=== PATIENT | male | born 1960 | race Caucasian/White ===

== ENCOUNTER 2022-11-30 15:35 | Outpatient (OUT) | payer BC, SELFPAY | END 2022-11-30 15:36 | disposition home or self-care (01) | LOC: WC 15:35 | PROVIDERS: PCP Physician Assistant; Visit Provider Physician Assistant | DX: L97.211 Non-pressure chronic ulcer of right calf limited to breakdown of skin (principal); L97.821 Non-pressure chronic ulcer of other part of left lower leg limited to breakdown of skin | CPT/HCPCS: G0463 ==

== ENCOUNTER 2023-01-18 13:10 | Outpatient (OUT) | payer BC, SELFPAY | END 2023-01-18 13:11 | disposition home or self-care (01) | LOC: WC 13:11 | PROVIDERS: PCP Physician Assistant; Visit Provider Physician Assistant | DX: L97.211 Non-pressure chronic ulcer of right calf limited to breakdown of skin (principal) | CPT/HCPCS: A6213; G0463 ==

== ENCOUNTER 2024-08-14 14:34 | Outpatient (OUT) | payer BC, SELFPAY ==
--- OUTSIDE RECORDS SUMMARY | 2024-08-14 14:36 | XMS_ITS | Encounter Summary ---
Author Organization [facility] Address [address] [place] [address] Care Team Providers Care Audiovisual Tech Name Role Phone Serafin Sharif DO Unavailable [phone] Serafin Sharif DO Primary Care Provider [phone] Encounter Details Date Type Department Care Team (Late st Contact Info) Description 10/03/2023 Orders Only [facility] [address] [facility] [address] [place] [address] Isabelle Garcia RN Social History Tobacco Use Types Packs/Day Years Used Date Smoking Tobacco: Former Cigarettes Smokeless Tobacco: Never Alcohol Use Standard Drinks/Week Comments Yes 0 (1 standard drink = 0.6 oz pure alcohol) drinks alcohol 2-4 times a month Sex and Gender Information Value Date Recorded Sex Assigned at Not on file Legal Sex Male 6:39 PM EDT Gender Identity Not on file Sexual Orientation Not on file documented as of this encounter Plan of Treatment Not on file documented as of this encounter Visit Diagnoses Not on filedocumented in this encounter Care Teams Audiovisual Tech Relationship Specialty Start Date End Date Serafin Sharif DO [address] [facility] [address] [place] [address] PCP - [place] [employer] 07/03/20 Serafin Sharif DO [address] [facility] [address] [place] [address] PCP - General Family Medicine 07/11/22 documented as of this encounter
--- OUTSIDE RECORDS SUMMARY | 2024-08-14 14:36 | XMS_ITS | Encounter Summary ---
Author Organization [facility] Address [address] [facility] [place] [address] Care Team Providers Care Online Merchant Name Role Phone Serafin Sharif DO Unavailable [phone] Serafin Sharif DO Primary Care Provider [phone] Encounter Details Date Type Department Care Team (Late st Contact Info) Description 12/02/2023 Telephone [facility] [address] [place] [id number] Rafael Banegas DO [address] [place] [address] Social History Tobacco Use Types Packs/Day Years [...] on file documented as of this encounter Miscellaneous Notes * Telephone Encounter - Rafael Banegas DO - 12/02/2023 5:05 PM EDT Relayed the following message to director non profit team to forward back to patient: Unfortunately cannot sendantibiotic without an in person exam. From the sounds of it likely an ulcer from poor venous flow. I would recommend wrapping it with some gauze to cover it and then use compression stocking if possible or branden wrap to decrease swelling and drainage. Call tomorrow to be seen. Go to ER if symptoms worsen, drainage becomes purulent, fevers chills develop or redness, warmth develops or worsens * Telephone Encounter - Chau Reshma - 12/02/2023 2:47 PM EDT Gunner Beck 58: : Dr. Sharif. Patient reports an ulcer on his right leg. States that every now & then it seeps. However, there is a burning sensation which began a couple ofdays ago. Patient asks for an antibiotic to be sent to [facility] in [place]. Teams sent to Dr. Banegas. documented in this encounter Plan of Treatment Not on file documented as of this encounter Visit Diagnoses Not on filedocumented in this encounter Care Teams Online Merchant Relationship Specialty Start Date End Date Serafin Sharif DO [address] [place] [address] PCP - Saji Orozco 07/03/20 Serafin Sharif DO [address] [place] [place] [address] PCP - General Family Medicine 07/11/22 documented as of this encounter
--- OUTSIDE RECORDS SUMMARY | 2024-08-14 14:36 | XMS_ITS | Encounter Summary ---
Author Organization [facility] Address [address] [place] [address] Care Team Providers Care Billiard Player Name Role Phone Serafin Sharif DO Unavailable [phone] Serafin Sharif DO Primary Care Provider [phone] Reason for Visit * Reason Comments Med Refill Encounter Details Date Type Department Care Team (Late st Contact Info) Description 01/29/2023 Refill [facility] [address] [facility] [facility] 230 [place] [address] Serafin Sharif DO [address] [facility] [place] [place] [address] Primary osteoarthritis of left hip Social History Tobacco Use Types Packs/Day Years [...] documented as of this encounter Visit Diagnoses Diagnosis Primary osteoarthritis of left hip documented in this encounter Care Teams Billiard Player Relationship Specialty Start Date End Date Serafin Sharif DO [address] [facility] [place] [address] [place] [address] PCP - [place] Commercial 07/03/20 Serafin Sharif DO [address] [facility] 230 [place] [address] PCP - General Family Medicine 07/11/22 documented as of this encounter
--- OUTSIDE RECORDS SUMMARY | 2024-08-14 14:36 | XMS_ITS | Clinical Summary ---
Author Organization [facility] Address [address] [place] [address] Care Team Providers Care Stabilizing Machine Operator Name Role Phone Serafin Sharif DO Primary Care Provider [phone] Allergies No known active allergies Medications metFORMIN (Glucophage) 500 MG tablet TAKE 1 TABLET BY MOUTH TWICE A DAY WITH A MEAL FOR 30 DAYS 023 Active ammonium lactate (Lac-Hydrin) 12 % lotion APPLY TO SKIN DAILY NEEDED Active lidocaine (Xylocaine) 5 % ointment APPLY DAILY NEEDED 022 Active aspirin 81 MG EC tabletIndications :Varicose veins of both lower extremities with inflammation Take 1 tablet (81 mg) by mouth Daily 024 2024 Active cyclobenzaprine (Flexeril) 10 MG tabletIndications :Myalgia, other site TAKE 1 TABLET UP TO THREE TIMES A DAY NEEDED FOR MUSCLE SPASM 90 tablet 3 024 Active rOPINIRole (Requip) 1 MG tabletIndications :Restless legs syndrome Take 1 tablet (1 mg) by mouth at bedtime 90 tablet 3 025 2025 Active meloxicam (Mobic) 15 MG tabletIndications :Osteoarthritis, unspecified osteoarthritis type, unspecified site Take 1 tablet (15 mg) by mouth Daily Take 15 mg by mouth Daily 90 tablet 3 025 Active metoprolol succinate XL (Toprol-XL) 100 MG 24 hr tabletIndications :Hypertension, unspecified type 1 po q daily 90 tablet 3 025 Active terazosin (Hytrin) 5 MG capsuleIndication s:Hypertension, unspecified type TAKE 1 CAPSULE DAILY 90 capsule 3 025 Active lisinopril 20 MG tabletIndications :Primary hypertension TAKE 1 TABLET TWICE A DAY (GOING BACKUP TO 40 MG TOTAL PER DAY) 180 tablet 3 025 Active oxyCODONE-acetami nophen (Percocet) 7.5-325 MG tabletIndications :Primary osteoarthritis of right knee Take 1 tablet by mouth every 6 (six) hours if needed for severe pain 60 tablet 025 Active traMADol-acetamin ophen (Ultracet) 37.5-325 MG tabletIndications :Primary osteoarthritis of right knee Take 1 tablet by mouth every 6 (six) hours if needed for severe pain 60 tablet 025 Active hydrocortisone 2.5 % creamIndications: Itching Apply topically in the morning and before bedtime. 28 g 025 Active predniSONE (Deltasone) 10 MG tabletIndications :Primary osteoarthritis of hip, unspecified laterality Take 1 tablet (10 mg) by mouth Daily TAKE 1 TABLET BY MOUTH WITH FOOD OR MILK THREE TIMES A DAY FOR 5 DAYS 15 tablet 025 Active triamcinolone (Kenalog) 0.1 % ointmentIndicatio ns:Itching Apply topically every 12 (twelve) hours 454 g 025 Active hydroCHLOROthiazi de (HYDRODiuril) 12.5 MG tabletIndications :Primary hypertension TAKE 1 TABLET IN THE MORNING (LOWERED DOSE) 90 tablet 3 025 Active hydrocortisone 2.5 % creamIndications: Itching Apply topically 2 (two) times a day. 28 g 023 2024 Discontinued(R eorder) predniSONE (Deltasone) 10 MG tabletIndications :Primary osteoarthritis of hip, unspecified laterality Take 1 tablet (10 mg) by mouth in the morning. TAKE 1 TABLET BY MOUTH WITH FOOD OR MILK THREE TIMES A DAY FOR 5 DAYS. 15 tablet 023 2024 Discontinued(R eorder) triamcinolone (Kenalog) 0.1 % ointment every 12 (twelve) hours. 023 2024 Discontinued(R eorder) hydroCHLOROthiazi de (HYDRODiuril) 12.5 MG tabletIndications :Primary hypertension Take 1 tablet (12.5 mg) by mouth in the morning. 90 tablet 3 024 2024 Discontinued traMADol (Ultram) 50 MG tabletIndications :Primary osteoarthritis of left hip Take 1 tablet (50 mg) by mouth every 6 (six) hours if needed for severe pain 90 tablet 025 2024 Discontinued(A lternate therapy) hydrocortisone 2.5 % creamIndications: Itching Apply topically in the morning and before bedtime. 28 g 025 2024 Discontinued(R eorder) methylPREDNISolon e (Medrol Dospak) 4 MG tabletsIndication s:Itching Follow schedule on package instructions 21 tablet 025 2024 levoFLOXacin (Levaquin) 750 MG tabletIndications :Cellulitis of leg without foot, right Take 1 tablet (750 mg) by mouth Daily for 7 days 7 tablet 025 2024 Active Problems Problem Noted Date Diagnosed Date Varicose veins of lower extremity with ulcer 02/2023 Varicose veins of lower extremity with inflammat ion 11/14/2022 Psoriasis 11/14/2022 Hypertension 11/14/2022 ED (erectile dysfunction) 11/14/2022 Carpal tunnel syndrome 11/14/2022 Allergic rhinitis 11/14/2022 Osteoarthritis of hip 07/30/2022 Primary osteoarthritis of right knee 07/30/2022 Encounters Date Type Department Care Team Description 08/13/2024 Refill [facility] [address] [place] [address] Serafin Sharif, DO Primary hypertension 07/29/2024 Telephone [facility] [address] [address] [place] [address] Jasmin Burt MA Med Refill 07/26/2024 Telephone [facility] [address] [place] [address] [place] [address] Serafin Sharif, DO Other (print color matcher); Med Refill 07/07/2024 Telephone [facility] [address] [place] [address] Serafin Sharif, DO Medication Question 07/01/2024 Telephone [facility] [address] [place] [address] Serafin Sharif, DO handi gaby placard ; Medication Question 06/20/2024 Telephone [facility] [address] [place] [address] Serafin Sharif, DO Medication Question 06/17/2024 Refill [facility] [address] [place] [address] Serafin Sharif, DO Primary osteoarthritis of right knee; Primary osteoarthritis of left hip 06/06/2024 3:00 PM EDT Telemedicine [facility] [address] [place] [address] Serafin Sharif, DO Leg ulcer, right, limited to breakdown of skin (HCC) (Primary Dx); Episodic tension-type headache, not intractable; Psoriasis ; Primary osteoarthritis of left hip 06/06/2024 Bamboo flowsheet [facility] [address] [place] [address] Serafin Sharif, DO 06/06/2024 Travel 06/04/2024 Telephone [facility] [address] [place] [address] Serafin Sharif, DO Med Refill 06/03/2024 Refill [facility] [address] [place] [address] Serafin Sharif, DO Primary osteoarthritis of left hip; Hypertension, unspecified type ; Primary hypertension 05/19/2024 Telephone [facility] [address] [place] [address] Serafin Sharif, DO Medication Question 05/16/2024 Telephone [facility] [address] [place] [address] Serafin Sharif, DO Medication Question 05/14/2024 Telephone [facility] [address] [place] [address] Marion Gaston MA from Last 3 Months Family History Medical History Relation Name Comments Cancer Mother Heart attack Sister 1 Relation Name Status Comments Brother Alive Father Mother Sister 1 Alive Sister 2 Alive Social History Tobacco Use Types Packs/Day Years Used Date Smoking Tobacco: Former Cigarettes Smokeless Tobacco: Never Tobacco Cessation:Counseling Given: Not Answered Alcohol Use Standard Drinks/Week Comments Yes 0 (1 standard drink = 0.6 oz pure alcohol) drinks alcohol 2-4 times a month B1300 Health Literacy Answer Date Recor ded How often do you need to hav e someone help you when you read instructions, pamphlets, or other written material from your doctor or pharmacy? Sometimes 06/06/2024 Social Connection and Isolat ion Panel [NHANES] Answer Date Recorded In a typical week, how many times do you talk on the phone with family, friends, or neighbors? More than three times a week 06/06/2024 How often do you get togethe r with friends or relatives? Never 06/06/2024 How often do you attend chur ch or buddhist services? Never 06/06/2024 Do you belong to any clubs o r organizations such as anabaptism groups, unions, fraternal or athletic groups, or school groups? No 06/06/2024 How often do you attend meet ings of the clubs or organizations you belong to? Never 06/06/2024 Are you , , di vorced, , never , or living with a partner? 06/06/2024 AUDIT-C Answer Date Recorded Q1: How often do you have a drink containing alc ohol? 2-4 times a month 06/06/2024 Q2: How many drinks containi ng alcohol do you have on a typical day when you are drinking? 7 to 9 06/06/2024 Q3: How often do you have si x or more drinks on one occasion? Weekly 06/06/2024 Overall Financial Resource Strain (CARDIA) Answe r Date Recorded How hard is it for you to pa y for the very basics like food, housing, medical care, and heating? Somewhat hard 06/06/2024 [facility] [place] [facility] Occupat ional Health - Occupational Stress Questionnaire Answer Date Recorded Do you feel stress - tense, restless, nervous, or anxious, or unable to sleep at night because your mind is troubled all the time - these days? To some extent 06/06/2024 Exercise Vital Sign Answer Date Recorde d On average, how many days pe r week do you engage in moderate to strenuous exercise (like a brisk walk)? 0 days 06/06/2024 On average, how many minutes do you engage in exercise at this level? 10 min 06/06/2024 Hunger Vital Sign Answer Date Recorded Within the past 12 months, y ou worried that your food would run out before you got the money to buy more. Never true 06/07/19 25 Within the past 12 months, t he food you bought just didn't last and you didn't have money to get more. Never true 06/06/2024 PRAPARE - Transportation Answer Date Re corded In the past 12 months, has l ack of transportation kept you from medical appointments or from getting medications? No 06/2024 In the past 12 months, has l ack of transportation kept you from meetings, work, or from getting things needed for daily living? No 06/06/2024 Housing Stability Vital Sign Answer Dillon e Recorded In the last 12 months, was t here a time when you were not able to pay the mortgage or rent on time? No 06/06/2024 In the past 12 months, how m any times have you moved where you were living? 0 06/06/2024 At any time in the past 12 m [facility], were you homeless or living in a prison (including now)? No 06/06/2024 Sex and Gender Information Value Date Recorded Sex Assigned at Not on file Legal Sex Male 6:39 PM EDT Gender Identity Not on file Sexual Orientation Not on file Last Filed Vital Signs Vital Sign Reading Time Taken Comments Blood Pressure 128/82 11/14/2022 11:39 AM EDT Pulse 78 11/14/2022 11:39 AM EDT Temperature 36.8 C (98.2 F) 11/14/2022 11:39 AM EDT Respiratory Rate - - Oxygen Saturation - - Inhaled Oxygen Concentration - - Weight 137 kg (301 lb) 11/14/2022 11:39 AM EDT Height 165.1 cm (5' 5 ) 11/14/2022 11:39 AM EDT Body Mass Index 50.09 11/14/2022 11:39 AM EDT Plan of Treatment Health Maintenance Due Date Last Done Comments CT Colonography 1959 FIT-DNA 1959 FIT 1959 FOBT 1959 Sigmoidoscopy 1959 Influenza Vaccine (Season Ended) 2024 12/27/2021, 12/09/2019, 12/07/2019, Additional history exists Colonoscopy 09/05/2027 09/04/2017, 11/30/2014 Colorectal Cancer Screening 09/05/2027 Procedures Procedure Name Priority Date/Time Associated Diagnosis Comments COLONOSCOPY Routine 09/04/2017 12:00 PM EDT from Last 3 Months or Most Recently Relevant to Health Maintenance Results * Colonoscopy (09/04/2017 12:00 PM EDT) Anatomical Region Laterality Modality Endoscopy 09/04/2017 12:0 0 PM EDT Narrative 09/04/2017 12:00 PM EDT PERFORMED AT [facility] LOCATION:[id number] Procedure Note CONVERSION, GENERIC - 07/19/2022 PERFORMED AT [facility] LOCATION:[id number] Serafin Sharif DO ENDOSCOPY PROCEDURE ORDERABLES Final Result from Last 3 Months or Most Recently Relevant to Health Maintenance Insurance [facility] Care Teams Stabilizing Machine Operator Relationship Specialty Start Date End Date Serafin Sharif DO [address] [address] PCP - General Family Medicine 07/11/22
--- OUTSIDE RECORDS SUMMARY | 2024-08-14 14:36 | XMS_ITS | Encounter Summary ---
Author Organization [facility] Address [address] [place] [address] Care Team Providers Care Review Appraiser Name Role Phone Serafin Sharif DO Unavailable [phone] Serafin Sharif DO Primary Care Provider [phone] Reason for Visit * Reason Comments Med Refill Encounter Details Date Type Department Care Team (Late st Contact Info) Description 04/29/2024 Refill [facility] [address] [facility] 230 [place] [address] Serafin Sharif DO [address] [facility] 230 [place] [address] Osteoarthritis, unspecified osteoarthritis type, unspecified site; Hypertension, unspecified type Social History Tobacco Use Types Packs/Day Years [...] encounter Miscellaneous Notes * Telephone Encounter - Jasmin Burt MA - 04/29/2024 8:32 AM EST duplicate documented in this encounter Plan of Treatment Not on file documented as of this encounter Visit Diagnoses Diagnosis Osteoarthritis, unspecified osteoarthritis type, unspecified site Hypertension, unspecified type documented in this encounter Care Teams Review Appraiser Relationship Specialty Start Date End Date Serafin Sharif DO [address] [place] [address] PCP - [place] [employer] 07/03/20 Serafin Sharif DO [address] [place] [address] PCP - General Family Medicine 07/11/22 documented as of this encounter
--- OUTSIDE RECORDS SUMMARY | 2024-08-14 14:36 | XMS_ITS | Encounter Summary ---
Author Organization [facility] Address [address] [facility] [place] [address] Care Team Providers Care Tile Burner Name Role Phone Serafin Sharif DO Unavailable [phone] Serafin Sharif DO Primary Care Provider [phone] Encounter Details Date Type Department Care Team (Late st Contact Info) Description 02/13/2024 Abstract [facility] [address] [place] [address] [place] [address] Serafin Sharif DO [address] [facility] [address] [facility] [address] [address] [place] [address] Social History Tobacco Use Types Packs/Day Years [...] on filedocumented in this encounter Care Teams Tile Burner Relationship Specialty Start Date End Date Serafin Sharif DO [address] [facility] [address] [place] [address] PCP - [place] [employer] 07/03/20 Serafin Sharif DO [address] [place] [address] PCP - General Family Medicine 07/11/22 documented as of this encounter
--- OUTSIDE RECORDS SUMMARY | 2024-08-14 14:36 | XMS_ITS | Encounter Summary ---
Author Organization [facility] Address [id number] [address] [place] [address] Care Team Providers Care Daycare Provider Name Role Phone Serafin Sharif DO Primary Care Provider [phone] Reason for Referral * Vascular (Routine) - Closed Specialty Diagnoses / Procedures Referred By Aguilar kingsley Referred To Contact Diagnoses Lymphedema PAD (peripheral artery disease) Venous ulcer ([facility]) Venous insufficiency Procedures Vas venous duplex insufficiency lwr bi Winnie Irizarry MD [address] [place] [address] Phone: tel: fax: [address] [address] Phone: tel: Referral ID Status Reason Start Date Expiration Date Visits Re quested Visits Authorized [id number] Closed 12/30/2020 12/30/2021 1 1 Encounter Details Date Type Department Care Team (Late st Contact Info) Description 12/30/2020 Orders Only [facility] [address] [place] [address] Cr Roman CMA PAD (peripheral artery disease) ([facility]) (Primary Dx); Lymphedema; Venous ulcer ([facility]); Venous insufficiency Social History Tobacco Use Types Packs/Day Years Used Date Smoking Tobacco: Never Smokeless Tobacco: Never Alcohol Use Standard Drinks/Week Comments Not Currently 0 (1 standard drink = 0.6 oz pur e alcohol) Sex and Gender Information Value Date Recorded Sex Assigned at Not on file Legal Sex Male 2:24 PM EDT Gender Identity Not on file Sexual Orientation Not on file COVID-19 Exposure Response Date Recorded In the last month, have you been in contact with someone who was confirmed or suspected to have Coronavirus / COVID-19? No / Unsure 12/30/2020 10:19 AM EDT documented as of this encounter Plan of Treatment Not on file documented as of this encounter Results * Vas venous duplex insufficiency lwr bi (01/18/2021 2:17 PM EST) Anatomical Region Laterality Modality Vascular Bilateral Ultrasound 01/18/2021 2:30 PM EST Narrative 01/18/2021 4:06 PM EST Right: Limited visualization of veins in the calf due to edema and body habitus. Remaining deep visualized venous segments are compressible with spontaneous phasic spectral Doppler waveforms. Superficial veins are compressible. Venous reflux time is <1000 ms in all evaluated deep veins. Saphenofemoral junction was noted with reflux time >500 ms. Great saphenous vein with 1673 ms reflux time in the mid medial calf. Superficial great saphenous varicosities noted in the medial calf. Left: Limited visualization of veins in the calf due to edema and body habitus. Remaining deep visualized venous segments are compressible with spontaneous phasic spectral Doppler waveforms. Superficial veins are compressible. Venous reflux time is <1000 ms in all evaluated deep veins. Saphenofemoral junction reflux >500 ms with multilevel great saphenous vein reflux. Superficial great saphenous varicosities noted in the medial calf. General: This examination was performed in the upright position. Conclusions: RIGHT: No evidence of deep or superficial vein thrombosis of the lower extremity. Limited visualization of lower extremity venous segments. No evidence of deep venous reflux. Saphenofemoral junction and great saphenous superficial vein reflux. Superficial varicosities. LEFT: No evidence of deep or superficial vein thrombosis of the lower extremity. Limited visualization of lower extremity venous segments. No evidence of deep venous reflux. Saphenofemoral junction and great saphenous superficial vein reflux. Superficial varicosities. Recommendations: Any questions prior to finalization, please call the reading physician during normal business hours at the phone number beside their name. Procedure Note Khurram Carrasquillo MD - 01/18/2021 Right: Limited visualization of veins in the calf due to edema and bodyhabitus. Remaining deep visualized venous segments are compressible withspontaneous phasic spectral Doppler waveforms. Superficial veins arecompressible. Venous reflux time is <1000 ms in all evaluated deep veins. Saphenofemoral junction was notedwith reflux time >500 ms. Great saphenous vein with 1673 ms reflux timein the mid medial calf. Superficial great saphenous varicosities notedin the medial calf. Left: Limited visualization of veins in the calf due to edema and bodyhabitus. Remaining deep visualized venous segments are compressible withspontaneous phasic spectral Doppler waveforms. Superficial veins arecompressible. Venous reflux time is <1000 ms in all evaluated deep veins. Saphenofemoral junction reflux >500ms with multilevel great saphenous vein reflux. Superficial greatsaphenous varicosities noted in the medial calf. General: This examination was performed in the upright position. Conclusions: RIGHT: No evidence of deep or superficial vein thrombosisof the lower extremity. Limited visualization of lower extremity venoussegments. No evidence of deep venous reflux. Saphenofemoral junctionand great saphenous superficial vein reflux. Superficial varicosities. LEFT: No evidence of deep orsuperficial vein thrombosis of the lower extremity. Limitedvisualization of lower extremity venous segments. No evidence of deepvenous reflux. Saphenofemoral junction and great saphenous superficial vein reflux. Superficial varicosities. Recommendations: Any questions prior to finalization, please call thereading physician during normal business hours at the phone number besidetheir name. Winnie Irizarry MD CV VASCULAR ORDERABLES Final Re sult documented in this encounter Visit Diagnoses Diagnosis PAD (peripheral artery disease)- Primary Unspecified peripheral vascular disease Lymphedema Other noninfectious lymphedema Venous ulcer (CMS-HCC) Chronic ulcer of unspecified site Venous insufficiency Unspecified venous (peripheral) insufficiency Lymphedema Other noninfectious lymphedema PAD (peripheral artery disease) Unspecified peripheral vascular disease Venous ulcer (CMS-HCC) Chronic ulcer of unspecified site Venous insufficiency Unspecified venous (peripheral) insufficiency documented in this encounter Care Teams Daycare Provider Relationship Specialty Start Date End Date Serafin Sharif DO [address] [facility] [address] [place] [address] PCP - General Family Medicine 01/18/21 documented as of this encounter
--- OUTSIDE RECORDS SUMMARY | 2024-08-14 14:36 | XMS_ITS | Encounter Summary ---
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 Never 06/06/2024 Do you belong to any clubs o r organizations such as shinto groups, unions, fraternal or athletic groups, or [...] medical care, and heating? Somewhat hard 06/06/2024 [facility] - Occupational Stress [...] any time in the past 12 m onths, were you homeless or living in a long term (including now)? No 06/06/2024 Sex and Gender Information Value Date Recorded Sex Assigned at Not on file Legal Sex Male 6:39 PM EDT Gender Identity Not on file Sexual Orientation Not on file documented as of this encounter Miscellaneous Notes * Telephone Encounter - Isabelle Garcia RN - 08/07/2024 1:11 PM EDT Please give him this message if he calls. He will not answer * Addendum Note - Serafin Sharif DO - 08/06/2024 5:52 PM EDTAddended by: SERAFIN SHARIF on: 08/06/2024 05:52 PM Modules accepted: Orders * Telephone Encounter - Mandy aMriscal - 08/06/2024 9:32 AM EDT Calling about cream * Telephone Encounter - Mandy Mariscal - 08/05/2024 11:29 AM EDT Pt calling in about above mentioned issues. The stronger cream in a bigger container for eczema. Aswell as if it's ok to use the ammonia lactate? * Telephone Encounter - Prabha Carney - 08/04/2024 1:38 PM EDT Pt called back in checking on the answer for the ammonialactate if its alright to use since it in 2022? * Telephone Encounter - Mandy Mariscal - 08/04/2024 8:44 AM EDT Pt states he is still having significant flare ups of excema on his legs. He is requesting a stronger strength of the cream (double if possible) and a bigger container/tube. He is almost out of the cream he picked up last week. He said the itching is unbearable. [facility]. Please call if/when this is done. He found a full bottle of ammonia lactate 12% but it in 2022. He was wondering if it is still good to use? Also per pt request printed out another 2 copies of the handicap placard order and placed at check in. Pt's may come to pick them up if he doesn't get them in the mail. * Addendum Note - Serafin Sharif DO - 07/30/2024 5:39 PM EDTAddended by: SERAFIN SHARIF on: 07/30/2024 05:39 PM Modules accepted: Orders * Telephone Encounter - Damaris Mcnulty MA - 07/30/2024 3:57 PM EDT Pt called back, he would like an update on the medication. He states he would like a stronger dose of the steroid, he would also like Levofloxacin sent in with refills. Pt would like an update once medication is sent. * Telephone Encounter - Mandy Mariscal - 07/30/2024 11:13 AM EDT Pt states he thinks the methylprednisolone wasn't strong enough. Pt would like a stronger dose of steroids for his eczema on his legs and forearms. He would like this sent to [facility]. He would also like antibiotics for his leg ulcers. * Telephone Encounter - Chelsea Powers MD - 07/26/2024 12:29 PM EDT Sent in steroid pack and cream * Telephone Encounter - Arielle Camacho - 07/26/2024 12:21 PM EDT Gunner Beck is a 63 y.o. male pt called in requesting if he could get [facility] [address] [place], [place] [id number] for his eczema flare up. Pt has had excessive dry knees and forearms that its very itchy and he scratches till the skin is raw. I did recommend pt to Urgent Care, pt refused he says he is disabled and cannot get out. (Secure message sent to gas collection system operator provider) documented in this encounter Plan of Treatment Not on file documented as of this encounter Visit Diagnoses Diagnosis Cellulitis of leg without foot, right- Primary Itching Unspecified pruritic disorder Primary osteoarthritis of hip, unspecified laterality documented in this encounter Care Teams Gem Technician Relationship Specialty Start Date End Date Serafin Sharif DO [address] [place] [address] [place] [address] PCP - General Family Medicine 07/11/22 documented as of this encounter
--- OUTSIDE RECORDS SUMMARY | 2024-08-14 14:36 | XMS_ITS | Encounter Summary ---
Author Organization [facility] Address [address] [place] [address] Care Team Providers Care Repair Operator Name Role Phone Serafin Sharif DO Primary Care Provider Reason for Visit * Reason Comments Med Refill Encounter Details Date Type Department Care Team (Late st Contact Info) Description 08/13/2024 Refill [facility] [address] [facility] [place] [address] [place] [address] Serafin Sharif DO [address] [facility] [address] [place] [address] Primary hypertension Social History Tobacco Use Types Packs/Day Years [...] 06/06/2024 How often do you attend chur or hindu services? Never 06/06/2024 Do you belong to any clubs o r organizations such as anglican groups, unions, fraternal or athletic groups, or [...] medical care, and heating? Somewhat hard 06/06/2024 [facility] - Occupational Stress [...] any time in the past 12 m [facility], were you homeless or living in a half-way (including now)? No 06/06/2024 Sex and Gender Information Value Date Recorded Sex Assigned at Not on file Legal Sex Male 6:39 PM EDT Gender Identity Not on file Sexual Orientation Not on file documented as of this encounter Plan of Treatment Not on file documented as of this encounter Visit Diagnoses Diagnosis Primary hypertension Unspecified essential hypertension documented in this encounter Care Teams Repair Operator Relationship Specialty Start Date End Date Serafin Sharif DO [address] [facility] [address] [place] [address] [place] [address] PCP - General Family Medicine 07/11/22 documented as of this encounter
--- OUTSIDE RECORDS SUMMARY | 2024-08-14 14:36 | XMS_ITS | Encounter Summary ---
Author Organization [facility] Address [address] [place] [address] Care Team Providers Care Lpn Rn Name Role Phone Serafin Sharif DO Unavailable [phone] Serafin Sharif DO Primary Care Provider [phone] Encounter Details Date Type Department Care Team (Late st Contact Info) Description 09/07/2022 Abstract [facility] [address] [place] [address] [place] [address] Serafin Sharif DO [address] [place] [address] [place] [address] Social History Tobacco Use Types Packs/Day Years Used Date Smoking Tobacco: Never Assessed Sex and Gender Information Value Date Recorded Sex Assigned at Not on file Legal Sex Male 6:39 PM EDT Gender Identity Not on file Sexual Orientation Not on file documented as of this encounter Plan of Treatment Not on file documented as of this encounter Visit Diagnoses Not on filedocumented in this encounter Care Teams Lpn Rn Relationship Specialty Start Date End Date Serafin Sharif DO [address] [place] [address] [place] [address] PCP - [place] [employer] 07/03/20 Serafin Sharif DO [address] [place] [address] [place] [address] PCP - General Family Medicine 07/11/22 documented as of this encounter
--- OUTSIDE RECORDS SUMMARY | 2024-08-14 14:36 | XMS_ITS | Encounter Summary ---
Author Organization [facility] Address [address] [facility] [place] [address] Care Team Providers Care Facilities Engineer Name Role Phone Serafin Sharif DO Unavailable [phone] Serafin Sharif DO Primary Care Provider [phone] Encounter Details Date Type Department Care Team (Late st Contact Info) Description 01/05/2023 Abstract [facility] [address] [place] [address] [place] [address] Serafin Sharif DO [address] [place] [address] [place] [address] Social History Tobacco Use Types Packs/Day Years [...] on filedocumented in this encounter Care Teams Facilities Engineer Relationship Specialty Start Date End Date Serafin Sharif DO [address] [place] [address] [place] [address] PCP - [place] [employer] 07/03/20 Serafin Sharif DO [address] [place] [address] [place] [address] PCP - General Family Medicine 07/11/22 documented as of this encounter
--- OUTSIDE RECORDS SUMMARY | 2024-08-14 14:36 | XMS_ITS | Encounter Summary ---
Author Organization [facility] Address [address] [place] [address] Care Team Providers Care Brake Reliner Name Role Phone Serafin Sharif DO Unavailable [phone] Serafin Sharif DO Primary Care Provider [phone] Encounter Details Date Type Department Care Team (Late st Contact Info) Description 07/28/2022 Orders Only [facility] [address] [facility] [address] [place] [address] Freeman Sharif MA Social History Tobacco Use Types Packs/Day Years [...] on filedocumented in this encounter Care Teams Brake Reliner Relationship Specialty Start Date End Date Serafin Sharif DO [address] [facility] [address] [place] [address] PCP - [place] [employer] 07/03/20 Serafin Sharif DO [address] [facility] [address] [place] [address] PCP - General Family Medicine 07/11/22 documented as of this encounter
--- OUTSIDE RECORDS SUMMARY | 2024-08-14 14:36 | XMS_ITS | Encounter Summary ---
Author Organization [facility] Address [address] [place] [address] Care Team Providers Care Financial Advisor Trainee Name Role Phone Serafin Sharif DO Primary Care Provider [phone] Reason for Visit * Reason Onset Date Comments handi cap placard 07/01/2024 Medication Question 07/01/2024 Encounter Details Date Type Department Care Team (Late st Contact Info) Description 07/01/2024 Telephone [facility] [address] [facility] [address] [place] [address] Serafin Sharif DO [address] [facility] [address] [place] [address] handi cap placard ; Medication Question Social History Tobacco Use Types Packs/Day Years [...] Never 06/06/2024 How often do you attend [facility] or yazidism services? Never 06/06/2024 Do you belong to any clubs o r organizations such as confucianist groups, unions, fraternal or athletic groups, or [...] medical care, and heating? Somewhat hard 06/06/2024 [facility] Occupat ional Health - Occupational [...] any time in the past 12 m [facility], were you homeless or living in a assisted (including now)? No 06/06/2024 Sex and Gender Information Value Date Recorded Sex Assigned at Not on file Legal Sex Male 6:39 PM EDT Gender Identity Not on file Sexual Orientation Not on file documented as of this encounter Miscellaneous Notes * Telephone Encounter - Mandy Davey - 07/31/2024 8:35 AM EDT Pt states he has not received handicap placards. I did tell him those were sent July 07. Confirmed address with patient printed out 2 copies and placed in envelope. Informed pt I would mail those again. Pt also wanted to know if his higher dose Prednisone had been sent in. Informed pt that yes it had and also antibiotic to [facility] [place]. Pt voiced understanding. * Addendum Note - Serafin Sharif DO - 07/07/2024 12:52 PM EDTAddended by: SERAFIN SHARIF on: 07/07/2024 12:52 PM Modules accepted: Orders * Telephone Encounter - Prabha Carney - 07/01/2024 9:49 AM EDT Pt will need a new rx for his handy cap placards he says he will need two. documented in this encounter Plan of Treatment Not on file documented as of this encounter Visit Diagnoses Diagnosis Primary osteoarthritis of left hip- Primary documented in this encounter Care Teams Financial Advisor Trainee Relationship Specialty Start Date End Date Serafin Sharif DO [address] [facility] [address] [place] [address] PCP - General Family Medicine 07/11/22 documented as of this encounter
--- OUTSIDE RECORDS SUMMARY | 2024-08-14 14:36 | XMS_ITS | Clinical Summary ---
Author Organization [facility] Address [id number] [address] [place] [address] Care Team Providers Care Sonography Technician Name Role Phone Serafin Sharif DO Primary Care Provider [phone] Allergies No known active allergies Medications diclofenac (VOLTAREN) 75 mg EC tablet 12/17/2020 Active hydroCHLOROthiazid e (HYDRODIURIL) 25 mg tablet 11/10/2020 Active lisinopriL (PRINIVIL,ZESTRIL) 40 mg tablet 12/14/2020 Active metoprolol succinate XL (TOPROL-XL) 100 mg 24 hr tablet 11/10/2020 Active naproxen (NAPROSYN) 500 mg tablet 10/24/2020 Active terazosin (HYTRIN) 5 mg capsule 11/27/2020 Active Active Problems Problem Noted Date Diagnosed Date Venous stasis ulcer of right calf with fat layer exposed without varicose veins 01/18/2021 Family History Medical History Relation Name Comments Cancer Mother Relation Name Status Comments Father Mother Social History Tobacco Use Types Packs/Day Years [...] Sign Reading Time Taken Comments Blood Pressure 137/82 01/18/2021 3:56 PM EST Pulse 88 01/18/2021 3:56 PM EST Temperature 36.6 C (97.8 F) 01/18/2021 3:56 PM EST Respiratory Rate 18 01/18/2021 3:56 PM EST Oxygen Saturation - - Inhaled Oxygen Concentration - - Weight 130.2 kg (287 lb) 12/30/2020 10:30 AM EDT Height 175.3 cm (5' 9 ) 12/30/2020 10:30 AM EDT Body Mass Index 42.38 12/30/2020 10:30 AM EDT Plan of Treatment Health Maintenance Due Date Last Done Comments Depression Screening 1971 Tobacco Screening 1971 Adult BMI Screening 10/28/1977 DTaP,Tdap and Td Vaccines (1 - Tdap) 10/28/1978 Zoster (Shingles) Vaccine (1 of 2) 10/28/2009 COVID-19 Vaccine (3 - 2023-2 5 season) 2023 08/17/2020, 07/27/2020 Influenza Vaccine 11/03/2024 12/07/2019, , 01/25/2018 Medical Devices [place] [address] G[employer] Care Teams Sonography Technician Relationship Specialty Start Date End Date Serafin Sharif DO [address] [place] [address] [place] [address] PCP - General Family Medicine 01/18/21
--- OUTSIDE RECORDS SUMMARY | 2024-08-14 14:36 | XMS_ITS | Encounter Summary ---
Author Organization [facility] Address [address] [facility] [place] [address] Care Team Providers Care Operations Administrative Assistant Name Role Phone Serafin Sharif DO Unavailable [phone] Serafin Sharif DO Primary Care Provider [phone] Encounter Details Date Type Department Care Team (Late st Contact Info) Description 02/13/2024 Abstract [facility] [address] [facility] [address] [facility] [address] [address] [place] [address] [place] [address] Serafin Sharif DO [address] [facility] [address] [address] [place] [place] [address] Social History Tobacco Use Types Packs/Day Years [...] on filedocumented in this encounter Care Teams Operations Administrative Assistant Relationship Specialty Start Date End Date Serafin Sharif DO [address] [facility] [address] [address] [place] [address] [place] [address] PCP - [place] [employer] 07/03/20 Serafin Sharif DO [address] [facility] [address] [place] [place] [address] PCP - General Family Medicine 07/11/22 documented as of this encounter
--- OUTSIDE RECORDS SUMMARY | 2024-08-14 14:36 | XMS_ITS | Encounter Summary ---
Author Organization [facility] Address [address] [place] [address] Care Team Providers Care Furnace Charger Name Role Phone Serafin Sharif DO Unavailable [phone] Serafin Sharif DO Primary Care Provider [phone] Encounter Details Date Type Department Care Team (Late st Contact Info) Description 07/30/2022 Orders Only [facility] [phone] Caio Haynes DO [address] [facility] [address] [place] [address] Social History Tobacco Use Types Packs/Day Years [...] on filedocumented in this encounter Care Teams Furnace Charger Relationship Specialty Start Date End Date Serafin Sharif DO [address] [place] [address] [place] [address] PCP - [place] [employer] 07/03/20 Serafin Sharif DO [address] [place] [address] [place] [address] PCP - General Family Medicine 07/11/22 documented as of this encounter
== END 2024-08-14 14:35 | disposition home or self-care (01) ==
LOC: WC 14:34
PROVIDERS: Visit Provider Podiatrist Foot & Ankle Surgery
DX: L97.211 Non-pressure chronic ulcer of right calf limited to breakdown of skin (principal)
CPT/HCPCS: 29581

== ENCOUNTER 2024-08-22 12:22 | Emergency (ER) | payer BC, SELFPAY ==
--- OUTSIDE RECORDS SUMMARY | 2024-08-22 12:35 | XMS_ITS | Encounter Summary ---
Author Organization [facility] Address [address] [facility] [place] [address] Care Team Providers Care Reporting Lead Name Role Phone Serafin Sharif DO Unavailable [phone] Serafin Sharif DO Primary Care Provider [phone] Encounter Details Date Type Department Care Team (Late st Contact Info) Description 02/13/2024 Abstract [facility] [address] [place] [address] Serafin Sharif DO [address] [place] [address] Social History Tobacco Use Types Packs/Day Years [...] on filedocumented in this encounter Care Teams Reporting Lead Relationship Specialty Start Date End Date Serafin Sharif DO [address] [place] [address] PCP - [place] Commercial 07/03/20 Serafin Sharif DO [address] [place] [address] PCP - General Family Medicine 07/11/22 documented as of this encounter
--- OUTSIDE RECORDS SUMMARY | 2024-08-22 12:35 | XMS_ITS | Encounter Summary ---
Author Organization [facility] Address [address] [place] [address] Care Team Providers Care Beehive Kiln Supervisor Name Role Phone Serafin Sharif DO Unavailable [phone] Serafin Sharif DO Primary Care Provider Encounter Details Date Type Department Care Team (Late st Contact Info) Description 07/30/2022 Orders Only [facility] [phone] Caio Haynes DO [address] [facility] 230 [place] [address] Social History Tobacco Use Types Packs/Day Years [...] on filedocumented in this encounter Care Teams Beehive Kiln Supervisor Relationship Specialty Start Date End Date Serafin Sharif DO [address] [place] [address] PCP - [place] Commercial 07/03/20 Serafin Sharif DO [address] [place] [address] PCP - General Family Medicine 07/11/22 documented as of this encounter
--- OUTSIDE RECORDS SUMMARY | 2024-08-22 12:35 | XMS_ITS | Encounter Summary ---
Author Organization [facility] Address [address] [facility] [place] [address] Care Team Providers Care Drop Count Associate Name Role Phone Serafin Sharif DO Unavailable [phone] Serafin Sharif DO Primary Care Provider [phone] Encounter Details Date Type Department Care Team (Late st Contact Info) Description 02/13/2024 Abstract [facility] [address] [place] [address] Serafin Sharif DO [address] [place] [address] Social History Tobacco Use Types Packs/Day Years [...] on filedocumented in this encounter Care Teams Drop Count Associate Relationship Specialty Start Date End Date Serafin Sharif DO [address] [place] [address] PCP - [place] Commercial 07/03/20 Serafin Sharif DO [address] [place] [address] PCP - General Family Medicine 07/11/22 documented as of this encounter
--- OUTSIDE RECORDS SUMMARY | 2024-08-22 12:35 | XMS_ITS | Encounter Summary ---
Author Organization [facility] Address [address] [place] [address] Care Team Providers Care Teacher Adventure Education Name Role Phone Serafin Sharif DO Unavailable [phone] Serafin Sharif DO Primary Care Provider [phone] Encounter Details Date Type Department Care Team (Late st Contact Info) Description 10/03/2023 Orders Only [facility] [address] [facility] 230 [place] [address] Isabelle Garcia RN Social History [...] on filedocumented in this encounter Care Teams Teacher Adventure Education Relationship Specialty Start Date End Date Serafin Sharif DO [address] [facility] [address] [place] [address] PCP - [place] Commercial 07/03/20 Serafin Sharif DO [address] [facility] [address] [place] [address] PCP - General Family Medicine 07/11/22 documented as of this encounter
--- OUTSIDE RECORDS SUMMARY | 2024-08-22 12:35 | XMS_ITS | Encounter Summary ---
Author Organization [facility] Address [address] [place] [address] Care Team Providers Care Allergist Name Role Phone Serafin Sharif DO Unavailable [phone] Serafin Sharif DO Primary Care Provider [phone] Encounter Details Date Type Department Care Team (Late st Contact Info) Description 09/07/2022 Abstract [facility] [address] [place] [address] Serafin Sharif DO [address] [place] [address] Social History Tobacco Use Types Packs/Day Years [...] on filedocumented in this encounter Care Teams Allergist Relationship Specialty Start Date End Date Serafin Sharif DO [address] [place] [address] PCP - [place] Commercial 07/03/20 Serafin Sharif DO [address] [place] [address] PCP - General Family Medicine 07/11/22 documented as of this encounter
--- OUTSIDE RECORDS SUMMARY | 2024-08-22 12:35 | XMS_ITS | Clinical Summary ---
Author Organization [facility] Address [address] [place] [address] Care Team Providers Care Supply Chain Procurement Manager Name Role Phone Serafin Sharif DO Primary Care Provider [phone] Allergies No known active allergies Medications metFORMIN (Glucophage) 500 MG tablet TAKE 1 TABLET BY MOUTH TWICE A DAY WITH A MEAL FOR 30 DAYS 023 Active ammonium lactate (Lac-Hydrin) 12 % lotion APPLY TO SKIN DAILY NEEDED 022 Active lidocaine (Xylocaine) 5 % ointment APPLY DAILY NEEDED 022 Active cyclobenzaprine (Flexeril) 10 MG tabletIndications :Myalgia, other site TAKE 1 TABLET UP TO THREE TIMES A DAY NEEDED FOR MUSCLE SPASM 90 tablet 3 024 Active rOPINIRole (Requip) 1 MG tabletIndications :Restless legs syndrome Take 1 tablet (1 mg) by mouth at bedtime 90 tablet 3 025 2025 Active metoprolol succinate XL (Toprol-XL) 100 MG [...] (LOWERED DOSE) 90 tablet 3 025 Active meloxicam (Mobic) 15 MG tabletIndications :Osteoarthritis, unspecified osteoarthritis type, unspecified site TAKE 1 TABLET BY MOUTH EVERY DAY WITH FOOD *STOP DICLOFENAC* 30 tablet 3 025 Active hydrocortisone 2.5 % [...] morning. 90 tablet 3 024 2024 Discontinued aspirin 81 MG EC tabletIndications :Varicose veins of both lower extremities with inflammation Take 1 tablet (81 mg) by mouth Daily 024 2024 meloxicam (Mobic) 15 MG tabletIndications :Osteoarthritis, unspecified osteoarthritis type, unspecified site Take 1 tablet (15 mg) by mouth Daily Take 15 mg by mouth Daily 90 tablet 3 025 2024 Discontinued traMADol (Ultram) 50 MG tabletIndications [...] Encounters Date Type Department Care Team Description 08/22/2024 Refill [facility] [address] [place] [address] Serafin Sharif, Osteoarthritis, unspecified osteoarthritis type, unspecified site 08/13/2024 Refill [facility] [address] [place] [address] Serafin Sharif, DO Primary hypertension 07/29/2024 Telephone [facility] [address] [place] [address] Jasmin Burt MA Med Refill 07/26/2024 Telephone [facility] [address] [place] [address] Serafin Sharif, DO Other (call center supervisor); Med Refill 07/07/2024 Telephone [facility] [address] [place] [address] Serafin Sharif, DO Medication Question 07/01/2024 Telephone [facility] [address] [place] [address] Serafin Sharif, DO handi cap placard ; Medication Question 06/20/2024 Telephone [facility] [address] [place] [address] Serafin Sharif, DO Medication Question 06/17/2024 Refill [facility] [address] [place] [address] Serafni Sharif, DO Primary osteoarthritis of right knee; Primary osteoarthritis of left hip 06/06/2024 3:00 PM EDT Telemedicine [facility] [address] [place] [address] Serafin Sharif, DO Leg ulcer, right, limited to breakdown of skin (HCC) (Primary Dx); Episodic tension-type headache, not intractable; Psoriasis ; Primary osteoarthritis of left hip 06/06/2024 Bamboo flowsheet [facility] [address] [place] [address] Serafin Sharif, DO 06/06/2024 Travel 06/04/2024 Telephone [facility] [address] [place] [address] Serafin Sharif, DO Med Refill 06/03/2024 Refill [facility] [address] [place] [address] Serafin Sharif, DO Primary osteoarthritis of left hip; Hypertension, unspecified type ; Primary hypertension from Last 3 Months Family History Medical [...] How often do you attend chur or temple services? Never 06/06/2024 Do you belong to any clubs o r organizations such as rastafarian groups, unions, fraternal or athletic groups, or [...] medical care, and heating? Somewhat hard 06/06/2024 [facility] of Occupat ional Health - Occupational Stress [...] any time in the past [facility], were you homeless or living in a halfway (including now)? No 06/06/2024 Sex and Gender [...] Narrative 09/04/2017 12:00 PM EDT PERFORMED AT [facility] LOCATION:[id number] Procedure Note CONVERSION, GENERIC - 07/19/2022 PERFORMED AT [facility] LOCATION:[id number] Serafin Sharif DO ENDOSCOPY PROCEDURE ORDERABLES Final Result from Last 3 Months or Most Recently Relevant to Health Maintenance Insurance BCBS Care Teams Supply Chain Procurement Manager Relationship Specialty Start Date End Date Serafin Sharif DO [address] [id number] PCP - General Family Medicine 07/11/22
--- OUTSIDE RECORDS SUMMARY | 2024-08-22 12:35 | XMS_ITS | Encounter Summary ---
Author Organization [facility] Address [address] [place] [address] Care Team Providers Care Designer Name Role Phone Serafin Sharif DO Unavailable [phone] Serafin Sharif DO Primary Care Provider [phone] Reason for Visit * Reason Comments Med Refill Encounter Details Date Type Department Care Team (Late st Contact Info) Description 01/29/2023 Refill [facility] [address] [facility] [address] [facility] 230 [place] [address] Serafin Sharif DO [address] [facility] [address] [place] [address] Primary osteoarthritis of left hip [...] hip documented in this encounter Care Teams Designer Relationship Specialty Start Date End Date Serafin Sharif DO [address] [place] [address] PCP - [place] Commercial 07/03/20 Serafin Sharif DO [address] [facility] 230 [place] [address] PCP - General Family Medicine 07/11/22 documented as of this encounter
--- OUTSIDE RECORDS SUMMARY | 2024-08-22 12:35 | XMS_ITS | Encounter Summary ---
Author Organization [facility] Address [address] [place] [address] Care Team Providers Care Second Floor Operator Name Role Phone Serafin Sharif DO Primary Care Provider [phone] Reason for Visit * Reason Comments Med Refill Encounter Details Date Type Department Care Team (Late st Contact Info) Description 08/22/2024 Refill [facility] [address] [facility] 230 [place] [address] Serafin Sharif DO [address] [facility] 230 [place] [address] Osteoarthritis, unspecified osteoarthritis type, unspecified site Social History Tobacco Use Types Packs/Day Years [...] Never 06/06/2024 How often do you attend [facility] or caodaism services? Never 06/06/2024 Do you belong to any clubs o r organizations such as faith groups, unions, fraternal or athletic groups, or [...] medical care, and heating? Somewhat hard 06/06/2024 [facility] of Occupat ional Health - Occupational [...] any time in the past 12 m [facility], were you homeless or living [...] Diagnosis Osteoarthritis, unspecified osteoarthritis type, unspecified site documented in this encounter Care Teams Second Floor Operator Relationship Specialty Start Date End Date Serafin Sharif DO [address] [address] PCP - General Family Medicine 07/11/22 documented as of this encounter
--- OUTSIDE RECORDS SUMMARY | 2024-08-22 12:35 | XMS_ITS | Encounter Summary ---
Author Organization [facility] Address [address] [place] [address] Care Team Providers Care New Accounts Banking Representative Name Role Phone Serafin Sharif DO Primary Care Provider [phone] Reason for Visit * Reason Comments Med Refill Encounter Details Date Type Department Care Team (Late st Contact Info) Description 08/13/2024 Refill [facility] [address] [facility] [address] [place] [address] Serafin Sharif DO [address] [facility] 230 [place] [address] Primary hypertension Social History Tobacco Use Types [...] How often do you attend chur or muslim services? Never 06/06/2024 Do you belong to any clubs o r organizations such as hindu groups, unions, fraternal or athletic groups, or [...] medical care, and heating? Somewhat hard 06/06/2024 [facility] of Occupat ional Health - Occupational [...] time in the past 12 m [facility], were you homeless or living in a custodial (including now)? No 06/06/2024 Sex and Gender Information Value Date Recorded Sex Assigned at Not on file Legal Sex Male 6:39 PM EDT Gender Identity Not on file Sexual Orientation Not on file documented as of this encounter Plan of Treatment Not on file documented as of this encounter Visit Diagnoses Diagnosis Primary hypertension Unspecified essential hypertension documented in this encounter Care Teams New Accounts Banking Representative Relationship Specialty Start Date End Date Serafin Sharif DO [address] [facility] [address] [place] [address] PCP - General Family Medicine 07/11/22 documented as of this encounter
--- OUTSIDE RECORDS SUMMARY | 2024-08-22 12:35 | XMS_ITS | Encounter Summary ---
Author Organization [facility] Address [address] [facility] [place] [address] Care Team Providers Care Disease And Insect Control Boss Name Role Phone Serafin Sharif DO Unavailable [phone] Serafin Sharif DO Primary Care Provider [phone] Encounter Details Date Type Department Care Team (Late st Contact Info) Description 01/05/2023 Abstract [facility] [address] [place] [address] Serafin Sharif DO [address] [place] [address] Social History Tobacco Use Types Packs/Day Years [...] on filedocumented in this encounter Care Teams Disease And Insect Control Boss Relationship Specialty Start Date End Date Serafin Sharif DO [address] [place] [address] PCP - [place] Commercial 07/03/20 Serafin Sharif DO [address] [place] [address] PCP - General Family Medicine 07/11/22 documented as of this encounter
--- OUTSIDE RECORDS SUMMARY | 2024-08-22 12:35 | XMS_ITS | Encounter Summary ---
Author Organization [facility] Address [id number] [address] [place] [address] Care Team Providers Care Cooling Tower Technician Name Role Phone Serafin Sharif DO Primary Care Provider [phone] Reason for Referral * Vascular (Routine) - Closed Specialty Diagnoses / Procedures Referred By Aguilar kingsley Referred To Contact Diagnoses Lymphedema PAD (peripheral artery disease) Venous ulcer ([facility]) Venous insufficiency Procedures Vas venous duplex insufficiency lwr bi Winnie Irizarry MD [address] [place] [address] Phone: tel: fax: [address] [address] Phone: tel: Referral ID Status Reason Start Date Expiration Date Visits Re quested Visits Authorized [id number] Closed 12/30/2020 12/30/2021 1 1 Encounter Details Date Type Department Care Team (Late st Contact Info) Description 12/30/2020 Orders Only [facility] [address] [place] [address] Cr Roman CMA PAD (peripheral artery disease) ([facility]) (Primary Dx); Lymphedema; Venous ulcer ([facility]); Venous insufficiency Social History Tobacco [...] insufficiency documented in this encounter Care Teams Cooling Tower Technician Relationship Specialty Start Date End Date Serafin Sharif DO [address] [facility] [address] [place] [address] PCP - General Family Medicine 01/18/21 documented as of this encounter
--- OUTSIDE RECORDS SUMMARY | 2024-08-22 12:35 | XMS_ITS | Clinical Summary ---
Author Organization [employer] [facility] Address [id number] [address] [place] [address] Care Team Providers Care Display Associate Name Role Phone Serafin Sharif DO Primary Care Provider [phone] Allergies No known active allergies Medications diclofenac [...] 01/25/2018 [employer] [place] [address] GER[employer] Care Teams Display Associate Relationship Specialty Start Date End Date Serafin Sharif DO [address] [place] [address] PCP - General Family Medicine 01/18/21
--- OUTSIDE RECORDS SUMMARY | 2024-08-22 12:35 | XMS_ITS | Encounter Summary ---
Author Organization [facility] Address [address] [facility] [place] [address] Care Team Providers Care Due Diligence Coordinator Name Role Phone Serafin Sharif DO Unavailable [phone] Serafin Sharif DO Primary Care Provider [phone] Encounter Details Date Type Department Care Team (Late st Contact Info) Description 12/02/2023 Telephone [facility] [address] [place] [id number] Rafael Banegas DO [address] [place] [address] Social History Tobacco Use Types Packs/Day Years [...] PM EDT Relayed the following message to forest fire prevention manager team to forward back to patient: Unfortunately [...] for an antibiotic to be sent to [facility] in [place]. Teams sent to Dr. Banegas. documented in this encounter Plan of Treatment Not on file documented as of this encounter Visit Diagnoses Not on filedocumented in this encounter Care Teams Due Diligence Coordinator Relationship Specialty Start Date End Date Serafin Sharif DO [address] [place] [address] PCP - Saji Orozco 07/03/20 Serafin Sharif DO [address] [place] [address] PCP - General Family Medicine 07/11/22 documented as of this encounter
--- OUTSIDE RECORDS SUMMARY | 2024-08-22 12:35 | XMS_ITS | Encounter Summary ---
Author Organization [facility] Address [address] [place] [address] Care Team Providers Care Lasting Machine Operator Bed Name Role Phone Serafin Sharif DO Unavailable [phone] Serafin Sharif DO Primary Care Provider [phone] Encounter Details Date Type Department Care Team (Late st Contact Info) Description 07/28/2022 Orders Only [facility] [address] [facility] [address] [place] [address] Freeman Sharif MA Social History Tobacco Use [...] on filedocumented in this encounter Care Teams Lasting Machine Operator Bed Relationship Specialty Start Date End Date Serafin Sharif DO [address] [facility] [address] [place] [address] PCP - [place] Commercial 07/03/20 Serafin Sharif DO [address] [facility] [address] [place] [address] PCP - General Family Medicine 07/11/22 documented as of this encounter
--- OUTSIDE RECORDS SUMMARY | 2024-08-22 12:35 | XMS_ITS | Encounter Summary ---
Author Organization [facility] Address [address] [place] [address] Care Team Providers Care Vp Revenue Cycle Name Role Phone Serafin Sharif DO Unavailable [phone] Serafin Sharif DO Primary Care Provider [phone] Reason for Visit * Reason Comments Med Refill Encounter Details Date Type Department Care Team (Late st Contact Info) Description 04/29/2024 Refill [facility] [address] [facility] 230 [place] [address] Serafin Sharif DO [address] [facility] [address] [place] [address] Osteoarthritis, unspecified osteoarthritis type, unspecified site; Hypertension, [...] type documented in this encounter Care Teams Vp Revenue Cycle Relationship Specialty Start Date End Date Serafin Sharif DO [address] [place] [address] PCP - [place] Commercial 07/03/20 Serafin Sharif DO [address] [place] [address] PCP - General Family Medicine 07/11/22 documented as of this encounter
--- OUTSIDE RECORDS SUMMARY | 2024-08-22 12:37 | XMS_ITS | CCD ---
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 Name Role Phone REENA OROZCO Admitting Unavailable HIGHLANDER, REENA Tucker Attending Unavailable HIGHLANDER, REENA Tucker Admitting Unavailable HIGHLANDER, REENA Tucker Attending Unavailable HIGHLANDER, REENA Tucker Admitting Unavailable HIGHLANDER, REENA Tucker Attending Unavailable WE[facility], DR OSMANY Chamberlain Admitting Unavailable WEST, DR OSMANY Chamberlain Attending Unavailable WEST, DR OSMANY Chamberlain Consulting Unavailable [facility], DR WILL Blackburn Consulting Unavailable WEST, DR OSMANY Chamberlain Admitting Unavailable WEST, DR OMSANY Chamberlain Attending Unavailable WEST, DR OSMANY Chamberlain Consulting Unavailable HIGHLANDER, REENA Tucker Admitting Unavailable HIGHLANDER, REENA Tucker Attending Unavailable WEST, DR OSMANY Chamberlain Consulting Unavailable HIGHLANDER, REENA Tucker Consulting Unavailable WEST, DR OSMANY Chamberlain Admitting Unavailable WEST, DR OSMANY Chamberlain Attending Unavailable WEST, DR OSMANY Chamberlain Consulting Unavailable WEST, DR OSMANY Chamberlain Admitting Unavailable WEST, DR OSMANY Chamberlain Attending Unavailable WEST, DR OSMANY Chamberlain Consulting Unavailable WEST, DR OSMANY Chamberlain Admitting Unavailable WEST, DR OSMANY Chamberlain Attending Unavailable WEST, DR OSMANY Chamberlain Consulting Unavailable HIGHLANDER, REENA Tucker Admitting Unavailable HIGHLANDER, REENA Tucker Attending Unavailable HIGHLANDER, REENA Tucker Admitting Unavailable HIGHLANDER, REENA Tucker Attending Unavailable HIGHLANDER, REENA Tucker Admitting Unavailable HIGHLANDER, REENA Tucker Attending Unavailable HIGHLANDER, REENA Tucker Admitting Unavailable HIGHLANDER, REENA Tucker Attending Unavailable Serafin Chacon Primary Care Unavailable Asaf Echeverira Attending Unavailable Asaf Echeverria Admitting Unavailable Eddie [place] II Unavailable Hoda Soriano Unavailable Hieu Leach Unavailable Serafin Chacon DO Unavailable Serafin Chacon DO Primary Care Provider SERAFIN CHACON Attending Unavailable SERAFIN CHACON Attending Unavailable Medications Current Medications Medication Drug Class(es) Dates Sig (Normalized) Sig (Original) aspirin 81 mg delayed release oral tablet (11 sources) Platelet Aggregation Inhibitor, Nonsteroidal Anti-inflammatory Drug Start: 08-17-2023 End: 08-16-2024 take 1 tablet by mouth once daily aspirin 81 MG EC tablet Indications: Varicose veins of both lower extremities with inflammation Take 1 tablet (81 mg) by mouth Daily 08/17/2023 08/16/2024 Active cyclobenzaprine hydrochloride 10 mg oral tablet (11 sources) Muscle Relaxant Start: 03-14-2023 cyclobenzaprine (Flexeril) 10 MG tablet Indications: Myalgia, other site TAKE 1 TABLET UP TO THREE TIMES A DAY NEEDED FOR MUSCLE SPASM 90 tablet 3 12/24/2023 Active fluticasone (3 sources) Corticosteroid Flonase Active hydroCHLOROthiazide 12.5 mg oral tablet (14 sources) Thiazide Diuretic Start: 04-11-2023 take 1 tablet by mouth in the morning hydroCHLOROthiazide (HYDRODiuril) 12.5 MG tablet Indications: Primary hypertension (CMS/HCC) Take 1 tablet (12.5 mg) by mouth in the morning. 90 tablet 3 04/11/2023 Active take 1 tablet by lorne th every twenty-four hours hydroCHLOROthiazide 25 MG 1 tablet in e morning Orally Once a day Active hydrocortisone 25 mg/ml topical cream (14 sources) Corticosteroid Start: 10-13-2022 hydrocortisone 2.5 % cream Indications: Itching Apply topically 2 (two) times a day. 28 g 10/13/2022 Active Start: 03-18-2015 Anusol-HC 25 m g 1 suppository Rectal at bedtime for 14 day(s) Mar, Not-Taking ammonium lactate 120 mg/ml topical lotion (11 sources) Start: 01-09-2022 ammonium lacta te (Lac-Hydrin) 12 % lotion APPLY TO SKIN DAILY NEEDED 01/09/2022 Active lidocaine 0.05 mg/mg topical ointment (11 sources) Antiarrhythmic, Amide Local Anesthetic Start: 01-09-2022 lidocaine (Xylocaine ) 5 % ointment APPLY DAILY NEEDED 01/09/2022 Active lisinopril 20 mg oral tablet (15 sources) Angiotensin Converting Enzyme Inhibitor Start: 04-26-2023 End: 06-03-2024 lisinopril 20 MG tablet Indications: Primary hypertension (CMS/HCC) TAKE 1 TABLET TWICE A DAY (GOING BACKUP TO 40 MG TOTAL PER DAY) 180 tablet 3 06/03/2024 Active Lisinopril Activ e meloxicam 15 mg oral tablet (15 sources) Nonsteroidal Anti-inflammatory Drug Start: 04-30-2024 take 1 tablet by mouth once daily meloxicam (Mobic) 15 MG tablet Indications: Osteoarthritis, unspecified osteoarthritis type, unspecified site Take 1 tablet (15 mg) by mouth Daily Take 15 mg by mouth Daily 90 tablet 3 04/30/2024 Active Start: 03-19-2024 End: 03-19-2024 meloxicam (Mobic) 15 MG tabl et Indications: Osteoarthritis, unspecified osteoarthritis type, unspecified site 90 tablet 3 03/19/2024 Active Start: 02-20-2024 take 1 tablet by lorne th once daily at mealtime meloxicam (Mobic) 15 MG tablet Indications: Osteoarthritis, unspecified osteoarthritis type, unspecified site TAKE 1 TABLET BY MOUTH EVERY DAY WITH FOOD *STOP DICLOFENAC* 30 tablet 3 02/20/2024 Active Start: 08-30-2023 take 1 tablet by lorne th once daily at mealtime meloxicam (Mobic) 15 MG tablet Indications: Osteoarthritis, unspecified osteoarthritis type, unspecified site TAKE 1 TABLET BY MOUTH EVERY DAY WITH FOOD *STOP DICLOFENAC* 30 tablet 3 08/30/2023 Active Meloxicam Active metFORMIN hydrochloride 500 mg oral tablet (14 sources) Biguanide Start: 07-14-2022 take 1 tablet by mouth twice daily at mealtime metFORMIN (Glucophage) 500 MG tablet TAKE 1 TABLET BY MOUTH TWICE A DAY WITH A MEAL FOR 30 DAYS 07/14/2022 Active 24 hr metoprolol succinate 100 mg extended release oral tablet (14 sources) beta-Adrenergic Donny Start: 04-30-2024 take 1 tablet by mouth once daily metoprolol succinate XL (Toprol-XL) 100 MG 24 hr tablet Indications: Hypertension, unspecified type (CMS/HCC) 1 po q daily 90 tablet 3 04/30/2024 Active Start: 03-14-2023 take 1 tablet by lorne th once daily metoprolol succinate XL (Toprol-XL) 100 MG 24 hr tablet Indications: Hypertension, unspecified type (CMS/HCC) 1 po q daily 90 tablet 3 03/14/2023 Active Metoprolol Succi jose ER 100 MG Oral for 90 Days Active predniSONE 10 mg oral tablet (14 sources) Start: 10-27-2022 take 1 tablet by mouth in the morning, then take 1 tablet by mouth three times daily at mealtime predniSONE (Deltasone) 10 MG tablet Indications: Primary osteoarthritis of hip, unspecified laterality Take 1 tablet (10 mg) by mouth in the morning. TAKE 1 TABLET BY MOUTH WITH FOOD OR MILK THREE TIMES A DAY FOR 5 DAYS. 15 tablet 10/27/2022 Active predniSONE 10 MG Oral for 5 Days Active rOPINIRole 1 mg oral tablet (12 sources) Nonergot Dopamine Agonist Start: 03-19-2024 End: 03-19-2025 take 1 tablet by mouth at bedtime rOPINIRole (Requip) 1 MG tablet Indications: Restless legs syndrome Take 1 tablet (1 mg) by mouth at bedtime 90 tablet 3 03/19/2024 03/19/2025 Active Start: 10-19-2023 take 1 tablet by lorne th at bedtime rOPINIRole (Requip) 1 MG tablet Indications: Restless legs syndrome TAKE 1 TABLET BY MOUTH AT BEDTIME 90 tablet 1 10/19/2023 Active terazosin 5 mg oral capsule (15 sources) alpha-Adrenergic Donny Start: 03-14-2023 End: 06-03-2024 terazosin (Hytrin) 5 MG capsule Indications: Hypertension, unspecified type (CMS/HCC) TAKE 1 CAPSULE DAILY 90 capsule 3 06/03/2024 Active Terazosin HCl Ac tive triamcinolone acetonide 0.001 mg/mg topical ointment (11 sources) Corticosteroid Start: 05-09-2022 triamcinolone (Kenalog) 0.1 % ointment every 12 (twelve) hours. 05/09/2022 Active Completed/Discontinued Medications Medication Drug Class(es) Dates Sig (Normalized) Sig (Original) acetaminophen 325 mg / oxyCODONE hydrochloride 7.5 mg oral tablet (11 sources) Opioid Agonist Start: 04-30-2024 End: 06-17-2024 take 1 tablet by mouth every six hours for pain oxyCODONE-acetaminop hen (Percocet) 7.5-325 MG tablet Indications: Primary osteoarthritis of right knee Take 1 tablet by mouth every 6 (six) hours if needed for severe pain 60 tablet 04/30/2024 06/17/2024 Discontinued (Reorder) Start: 02-19-2024 take 1 tablet by lorne th every six hours for pain oxyCODONE-acetaminophen (Percocet) 7.5-3 25 MG tablet Indications: Primary osteoarthritis of right knee Take 1 tablet by mouth every 6 (six) hours if needed for severe pain 60 tablet 02/19/2024 Active Start: 12-12-2023 take 1 tablet by lorne th every six hours for pain oxyCODONE-acetaminophen (Percocet) 5-325 MG tablet Indications: Osteoarthritis, unspecified osteoarthritis type, unspecified site Take 1 tablet by mouth every 6 (six) hours if needed for severe pain 28 tablet 12/12/2023 Active [id number] 200 actuat albuterol 0.09 mg/actuat metered dose inhaler (14 sources) beta2-Adrenergic Agonist Start: 05-20-2022 End: 06-06-2024 take 1 puff(s) by mouth every four hours as needed albuterol HFA 90 mcg/act inhaler INHALE 1 PUFF BY MOUTH EVERY 4 HOURS NEEDED FOR 21 DAYS 05/20/2022 06/06/2024 Discontinued Start: 10-04-2014 take 2 puff(s) by in halation every four hours as needed Albuterol Sulfate HFA 108 (90 Base) MCG/ACT 2 puffs as needed Inhalation every 4 hrs Oct, Not-Taking Start: 10-04-2014 Amoxicillin (3 sources) Penicillin-class Antibacterial A moxicillin Not-Taking amoxicillin 875 mg / clavulanate 125 mg oral tablet (3 sources) Penicillin-class Antibacterial Start: 10-04-2014 take 1 tablet by mouth every twelve hours Amoxicillin-Pot Clavulanate 875-125 MG 1 tablet Orally bid for 7 days Oct, Not-Taking Start: 10-04-2014 take 1 tablet by mouth every t welve hours cetirizine hydrochloride 10 mg oral tablet (11 sources) Histamine-1 Receptor Antagonist Start: 10-27-2022 End: 06-06-2024 take 1 tablet by mouth once daily in the morning cetirizine (ZyrTEC) 10 MG tablet Indications: Itching TAKE 1 TABLET BY MOUTH EVERY DAY IN THE MORNING 90 tablet 1 10/27/2022 06/06/2024 Discontinued (Med list cleanup) citric acid / magnesium oxide / picosulfurate (3 sources) Calculi Dissolution Agent, Anti-coagulant Start: 11-26-2014 Prepopik 10mg/3.5g/12g As Directed Orally for 1 dose(s) Nov, Not-Taking Start: 11-26-2014 Codeine / guaiFENesin (6 sources) Opioid Agonist Start: 10-04-2014 take 5 mL by mouth every four hours as needed Cheratussin AC 100-10 MG/5ML 5 ml Orally every 4 hrs as needed for 5 day(s) Oct, Not-Taking Start: 10-04-2014 Cheratussin AC N ot-Taking dextromethorphan hydrobromide 3 mg/ml / promethazine hydrochloride 1.25 mg/ml oral solution (11 sources) Phenothiazine, Uncompetitive R-ixhwbt-Y-aspartate Receptor Antagonist, Sigma-1 Agonist Start: 03-21-2023 End: 06-06-2024 promethazine-dextromethorpha n (Phenergan-DM) 6.25-15 MG/5ML syrup Indications: Acute cough TAKE 5ML BY MOUTH EVERY 6 HOURS NEEDED FOR 10 DAYS 120 mL 1 03/21/2023 06/06/2024 Discontinued (Med list cleanup) diclofenac sodium 0.01 mg/mg topical gel (11 sources) Nonsteroidal Anti-inflammatory Drug Start: 12-08-2022 End: 06-06-2024 diclofenac sodium 1 % gel Indications: Localized primary osteoarthritis of right hand Apply 2 g topically in the morning and 2 g in the evening and 2 g before bedtime. 100 g 1 12/08/2022 06/06/2024 Discontinued levoFLOXacin 750 mg oral tablet (7 sources) Quinolone Antimicrobial Start: 06-06-2024 End: 06-16-2024 take 1 tablet by mouth once daily levoFLOXacin (Levaquin) 750 MG tablet Indications: Leg ulcer, right, limited to breakdown of skin (CMS/HCC) Take 1 tablet (750 mg) by mouth Daily for 10 days 10 tablet 06/06/2024 06/16/2024 Start: 05-16-2024 End: 05-23-2024 take 1 tablet by mouth once daily levoFLOXacin (Levaquin) 750 MG tablet Indications: Cellulitis of leg without foot, right Take 1 tablet (750 mg) by mouth Daily for 7 days 7 tablet 05/16/2024 05/23/2024 Active Start: 04-16-2024 End: 04-23-2024 take 1 tablet by mouth once daily levoFLOXacin (Levaquin) 750 MG tablet Indications: Leg ulcer, right, limited to breakdown of skin (CMS/HCC) Take 1 tablet (750 mg) by mouth Daily for 7 days 7 tablet 04/16/2024 04/23/2024 Active levoFLOXacin 750 MG TAKE 1 TABLET BY MOUTH EVERY DAY FOR 7 DAYS Oral for 7 Days Not-Taking methylPREDNISolone 4 mg oral tablet (3 sources) Corticosteroid Start: 10-04-2014 Medrol (Azael) 4 mg as directed Orally take 24 mg on day one decreasing by 4 mg per day for 6 days Oct, Not-Taking sildenafil 100 mg oral tablet (11 sources) Phosphodiesterase 5 Inhibitor End: 06-06-2024 take 1 tablet by mouth once daily as needed sildenafil (Viagra) 100 MG tablet 1 tablet Orally Once a day prn erectile dysfunction for 6 06/06/2024 Discontinued traMADol hydrochloride 50 mg oral tablet (13 sources) Opioid Agonist Start: 12-28-2023 End: 06-17-2024 take 1 tablet by mouth every six hours for pain traMADol (Ultram) 50 MG tablet Indications: Primary osteoarthritis of left hip Take 1 tablet (50 mg) by mouth every 6 (six) hours if needed for severe pain 90 tablet 06/03/2024 06/17/2024 Discontinued (Reorder) Start: 11-01-2023 take 1 tablet by lorne th every six hours for pain traMADol (Ultram) 50 MG tablet Indications: Primary osteoarthritis of left hip Take 1 tablet (50 mg) by mouth every 6 (six) hours if needed for severe pain 90 tablet 11/01/2023 Active Problems Active Problems Problem Classification Problem Date Documented Da te Episodic/Chronic Chronic ulcer of skin (9 sources) Non-pressure chronic ulcer of right calf limited to breakdown of skin; Translations: [Non-pressure chronic ulcer of other part of left lower leg limited to breakdown of skin] Onset: 2 Chronic Diverticulosis and diverticulitis (3 sources) Diverticulosis of sigmoid colon; Translations: [Sigmoid diverticulosis] Chronic Essential hypertension (14 sources) Essential (primary) hypertension; Translations: [Hypertensive disorder] Onset: 2 11-14-2022 Chronic Headache; including migraine (2 sources) Episodic tension-type headache; Translations: [Episodic tension-type headache, not intractable] 06-19-2024 Chronic Mycoses (5 sources) Tinea unguium; Translations: [TINEA UNGUIUM] Onset: 2 Episodic Osteoarthritis (20 sources) Osteoarthritis of hip; Translations: [Osteoarthritis of hip, unspecified] Onset: 3 07-30-2022 Chronic Other and unspecified benign neoplasm (3 sources) Tubular adenoma of colon; Translations: [Tubular adenoma of colon] Episodic Other circulatory disease (1 source) Other specified peripheral vascular diseases; Translations: [OTH SPEC PERIPHERAL VASC DISEASES] Onset: 2 Chronic Other diseases of veins and lymphatics (4 sources) Chronic venous hypertension (idiopathic) with ulcer of right lower extremity; Translations: [CHRON VENOUS HTN W/ULCER RT LW EXT] Onset: 2 Chronic Other diseases of veins and lymphatics (1 source) Chronic venous hypertension (idiopathic) with ulcer of left lower extremity; Translations: [CHRON VENOUS HTN W/ULCER LT LW EXT] Onset: 2 Chronic Other diseases of veins and lymphatics (1 source) Lymphedema, not elsewhere classified; Translations: [LYMPHEDEMA NOT ELSEWHERE CLASSIFIED] Onset: 2 Chronic Other diseases of veins and lymphatics (1 source) Venous insufficiency (chronic) (peripheral); Translations: [VENOUS INSUFF CHRONIC PERIPHERAL] Onset: 2 Episodic Other hereditary and degenerative nervous system conditions (1 source) Restless legs; Translations: [Restless legs syndrome] 03-19-2024 Chronic Other inflammatory condition of skin (1 source) Psoriasis, unspecified; Translations: [PSORIASIS UNSPECIFIED] Onset: 2 Chronic Other inflammatory condition of skin (13 sources) Psoriasis; Translations: [Psoriasis, unspecified] Onset: 3 11-14-2022 Chronic Other male genital disorders (11 sources) Male erectile dysfunction, unspecified; Translations: [Impotence of organic origin] Onset: 3 11-14-2022 Chronic Other nervous system disorders (11 sources) Carpal tunnel syndrome; Translations: [Carpal tunnel syndrome, unspecified upper limb] Onset: 3 11-14-2022 Chronic Other non-traumatic joint disorders (1 source) Pain in left hip Episodic Other nutritional; endocrine; and metabolic disorders (1 source) Other obesity; Translations: [OTHER OBESITY] Onset: 2 Chronic Other nutritional; endocrine; and metabolic disorders (3 sources) Body mass index 40+ - severely obese; Translations: [Body mass index (BMI) 40.0-44.9, adult] Chronic Other nutritional; endocrine; and metabolic disorders (1 source) Body mass index (BMI) 40.0-44.9, adult Chronic Other skin disorders (1 source) Nail disorder, unspecified; Translations: [NAIL DISORDER UNSPECIFIED] Onset: 2 Episodic Other skin disorders (1 source) Nail dystrophy; Translations: [NAIL DYSTROPHY] Onset: 2 Episodic Other upper respiratory disease (11 sources) Allergic rhinitis; Translations: [Allergic rhinitis, unspecified] Onset: 3 11-14-2022 Chronic Phlebitis; thrombophlebitis and thromboembolism (8 sources) Phlebitis and thrombophlebitis of superficial vessels of left lower extremity; Translations: [Phlebitis and thrombophlebitis of superficial vessels of right lower extremity] Onset: 2 Episodic Residual codes; unclassified (2 sources) Localized edema; Translations: [LOCALIZED EDEMA] Onset: 2 Episodic Unclassified (1 source) L03.115 - Cellulitis of right lower limb; Translations: [L03.115 - Cellulitis of right lower limb] Onset: 1 Past or Other Problems Problem Classification Problem Date Documented Da te Episodic/Chronic Other skin disorders (1 source) Personal history of diseases of the skin and subcutaneous tissue; Translations: [PERS HX DZ SKIN AND SUBCUTANEOUS TISSUE] Onset: 07-01-2021 Episodic Varicose veins of lower extremity (20 sources) Varicose veins of unspecified lower extremity with inflammation; Translations: [Varicose veins of bilateral lower extremities with pain] Onset: 12-26-2021 Episodic Results Test Name Value Interpretation Reference Range Facility VC CONSULT FOLLOWUPon 2021 VC CONSULT FOLLOWUP Patient: PAIGE VISH Lowe. Exam Date: 01/03/2022 : 1960 Gender:M Ordering : DR OSMANY MARIA M.D. Admission #: [id number] Family : Order #: [id number] CLICK HERE TO VIEW EXAM RADIOLOGY REPORT PROCEDURE: VEIN CENTER CONSULTATION FOLLOWUP VEIN CENTER - OFFICE VISIT FOLLOW UP COMPARISON: VC CONSULT FOLLOWUP, 10/17/2021. VC CONSULT FOLLOWUP, 09/02/2021. PROGRESS NOTES: The patient reports some mild discomfort of the left leg following intravenous laser ablation of the left great saphenous vein. The patient did not require oral analgesics. 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 I recommended that he switch to knee high compression stockings 3 days after each procedure if that is all he is able to tolerate. The patient has followed our recommendations to walk 20-30 minutes once or twice per day since the procedure. Physical exam demonstrates no areas of erythema or bruising. Thrombosed left great saphenous vein can be partially palpated. Again demonstrated is an active venous stasis ulceration along the distal medial left lower leg. Review of the ultrasound performed the same day demonstrates occlusive thrombus extending throughout the treated left great saphenous vein with heat induced thrombus 2.8 cm from the saphenofemoral junction. Residual bilateral varicose veins.. The patient expressed a desire to proceed with treatment of incompetent right small saphenous vein with intravenous laser ablation. IMPRESSION: 1. Successful ablation of the left great saphenous vein 2. 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 The nurse was present throughout the physical exam and consultation Dictated by: Osmany Maria MD on 01/03/2022 at 12:00 Approved by: Osmany Maria MD on 01/03/2022 at 12:12 Normal [facility] VC EXT VENOUS LT LIMITEDon 1 03-05-2021 VC EXT VENOUS LT LIMITED Patient: FREDO GIBSON Exam Date: 01/03/2022 : 1960 Gender:M Ordering : DR OSMANY MARIA M.D. Admission #: [id number] Family : Order #: [id number] CLICK HERE TO VIEW EXAM RADIOLOGY REPORT PROCEDURE: VEIN CENTER EXTREMITY VENOUS LEFT LIMITED COMPARISON: VC VENOUS REFLUX JULIA LMT, 06/29/2021. INDICATIONS: Phlebitis of superficial veins of lower extremity I80.02 TECHNIQUE: Lower extremity dumont scale and Duplex Doppler evaluation of the deep venous system from the inguinal ligament through the calf veins. FINDINGS: REGION: Left lower extremity. THROMBI: Negative for DVT. Heat induced thrombus visualized arising 2.8 cm from the SFJ. The heat induced thrombus extends from groin to distal calf. COMPRESSIBILITY: Non-compressible segments. FLOW: Areas of no flow. *Exam performed in accordance with [facility] practice guidelines- Peripheral venous ultrasound, May 29, 2009. CONCLUSION: Post ablation occlusion of the left great saphenous vein with heat induced thrombus 2.8 cm from the saphenofemoral junction Dictated by: Osmany Maria MD on 01/03/2022 at 11:49 Approved by: Osmany Maria MD on 01/03/2022 at 11:50 Normal [facility] VC ENDOVENOUS ABL 1ST V LTon 12-26-2021 VC ENDOVENOUS ABL 1ST V LT Patient: FREDO GIBSONRicki Exam Date: 12/26/2021 : 1960 Gender:M Ordering : DR OSMANY MARIA M.D. Admission #: [id number] Family : Order #: [id number] CLICK HERE TO VIEW EXAM RADIOLOGY REPORT PROCEDURE: VEIN CENTER ENDOVENOUS ABLATION FIRST VEIN LEFT GREAT SAPHENOUS VEIN COMPARISON: None. INDICATIONS: Pain co-occurrent and due to varicose veins of bilateral legs I83.813 OPERATIVE REPORT: The risks and benefits of the procedure had been previously discussed, and were rediscussed at length. Informed written consent was obtained by and Gonzalo Dugan assisted. Time out procedure was performed. The left great lower extremity was prepared and draped in the usual sterile fashion to allow knee flexion in the sterile field. Duplex ultrasound probe was draped in a sterile cover, sterile transmission gel was used. Venous mapping was performed with the areas of dilation and large tributaries marked. The total length was 53 cm from the entry 10 cm above the medial malleolus to 3 cm below the saphenofemoral junction. The diameter of the greater saphenous vein ranged from 5-10 mm. A 30 gauge needle and 1% buffered lidocaine was used to anesthetize the entry site. A 4 mm incision was made with a scalpel and the saphenous vein was entered percutaneously under direct ultrasound guidance with a micropuncture set, a single stick was successful in gaining access. A micro-guide wire was inserted and the needle removed. A micro-set including a dilator was inserted over the microwire and the needle and dilator were removed. A 0.018 guide wire was inserted through the micro-set and threaded through the saphenous vein to the saphenofemoral junction. The dilator was removed and an introducer sheath was inserted over the wire until the end of the sheath entered the saphenofemoral junction. The dilator and wire were removed and the 600 micron fiber was introduced and placed and positioned so that it extended beyond the sheath and was 3 cm peripheral to the saphenofemoral femoral junction. Final position of the fiber was determined by ultrasound guidance and duplex imaging. Tumescent anesthetic was delivered by ultrasound guidance. 500 cc of fluid was delivered along the entire course of the saphenous vein. The solution consisted of 500 cc of normal saline with 20mL of 1% lidocaine and 10 mL of sodium bicarbonate. A final positioning check was made. The energy source was turned on by means of the foot pedal and the fiber and sheath were withdrawn. The total number of Joules delivered was 3480 The laser was active for 310 seconds under continuous pulse, average laser use of 8 J. Laser start time 14:07 12/26/21. Laser stop time 14:15 12/26/21. A duplex ultrasound revealed compressibility and flow at the saphenofemoral junction immediately after the procedure. Hemostasis at the access site was achieved. The skin incision of the saphenous vein was closed with a 4 x 4. A compression stocking was applied. Postop instructions were given. A follow up appointment was recommended and scheduled. The patient tolerated the procedure well and was discharged in good condition. CONCLUSION: 1. Technically successful endovenous laser ablation of the left great saphenous vein. Dictated by: Osmany Maria MD on 12/26/2021 at 14:23 Approved by: Osmany Maria MD on 12/26/2021 at 14:26 [facility] VC CONSULT FOLLOWUPon 2021 VC CONSULT FOLLOWUP Patient: PAIGEVISH. Exam Date: 10/17/2021 : 1960 Gender:M Ordering : DR OSMANY MARIA M.D. Admission #: [id number] Family : Order #: [id number] CLICK HERE TO VIEW EXAM RADIOLOGY REPORT PROCEDURE: VEIN CENTER CONSULTATION FOLLOWUP VEIN CENTER - OFFICE VISIT FOLLOW UP COMPARISON: VC CONSULT FOLLOWUP, 09/02/2021. PROGRESS NOTES: The patient reports changes within and surrounding his anterior right anaya wound. Patient had pictures on his phone which showed a flush of redness within the skin surrounding the wound which has decreased to a more pinkish appearance, and what appears to be islands of granulation tissue within the wound suggesting healing process. Patient did not wish to uncover is wound for viewing at this time due to recent bandage placement. Patient denies pain and swelling. No clinical findings to suggest deep vein thrombus. The patient expressed a desire to proceed with treatment of remaining incompetent veins, but not at this time. The patient was informed that treatment was a process and would require several procedures/sessions. IMPRESSION: 1. Early healing changes of anterior right anaya wound. PLAN: 1. Follow-up with wound clinic. 2. Continue with endovenous ablation of dilated incompetent veins when patient is ready. Nurse notes, history and physical were reviewed and confirmed, see attached forms. The nurse was present throughout the physical exam and consultation Dictated by: Will Dial M.D. on 10/17/2021 at 11:25 Approved by: Will Dial M.D. on 10/17/2021 at 11:38 Normal [facility] VC CONSULT FOLLOWUPon 2021 VC CONSULT FOLLOWUP Patient: VISH GIBSON Exam Date: 09/02/2021 : 1960 Gender:M Ordering : DR OSMANY MARIA M.D. Admission #: [id number] Family : Order #: [id number] CLICK HERE TO VIEW EXAM RADIOLOGY REPORT PROCEDURE: VEIN CENTER CONSULTATION FOLLOWUP VEIN CENTER - OFFICE VISIT FOLLOW UP COMPARISON: None. PROGRESS NOTES: The patient reports mild to moderate pain of the right leg following intravenous laser ablation. The patient did wear his compression stocking but reports that he felt that they were too tight and cut off his circulation in the upper thigh. The patient did not require oral analgesics. The patient has followed our recommendations to walk 20-30 minutes once or twice per day since the procedure. Physical exam demonstrates no areas of erythema or bruising. The great saphenous vein cannot be palpated due to the patient's large body habitus. No areas of ulceration. Review of the ultrasound performed the same day demonstrates occlusive thrombus extending throughout the treated great saphenous vein with heat induced thrombus 3.4 cm from the saphenofemoral junction. The patient expressed a desire to proceed with treatment of the left great saphenous vein with intravenous laser ablation. We did provide the patient with replacement compression wrap at no charge. IMPRESSION: 1. Successful ablation of the right great saphenous vein 2. Incompetent left great saphenous vein PLAN: Intravenous laser ablation left great saphenous vein Nurse notes, history and physical were reviewed and confirmed, see attached forms. The nurse was present throughout the physical exam and consultation Dictated by: Osmany Maria MD on 09/02/2021 at 13:32 Approved by: Osmany Maria MD on 09/02/2021 at 13:35 Normal [facility] VC EXT VENOUS RT LIMITEDon 0 09-02-2021 VC EXT VENOUS RT LIMITED Patient: FREDO GIBSON Exam Date: 09/02/2021 : 1960 Gender:M Ordering : DR OSMANY MARIA M.D. Admission #: [id number] Family : Order #: [id number] CLICK HERE TO VIEW EXAM RADIOLOGY REPORT PROCEDURE: VEIN CENTER EXTREMITY VENOUS RIGHT LIMITED COMPARISON: None. INDICATIONS: Phlebitis and thrombophlebitis of superficial veins of right lower extremity I80.01 TECHNIQUE: Lower extremity dumont scale and Duplex Doppler evaluation of the deep venous system from the inguinal ligament through the calf veins. FINDINGS: REGION: Right lower extremity. THROMBI: Negative for DVT. Heat induced thrombus in right GSV 3.4cm from the SFJ and extends to the mid calf at area of insertion. COMPRESSIBILITY: Noncompressibility corresponding to thrombus FLOW: Absent flow corresponding to thrombus. OTHER: Multiple varicosities remain. *Exam performed in accordance with [facility] practice guidelines- Peripheral venous ultrasound, May 29, 2009. CONCLUSION: Post ablation occlusion of the right great saphenous vein with heat induced thrombus 3.4 cm from the saphenofemoral junction Dictated by: Osmany Maria MD on 09/02/2021 at 13:19 Approved by: Osmany Maria MD on 09/02/2021 at 13:19 Normal [facility] VC ENDOVENOUS ABL 1ST V RTon 08-25-2021 VC ENDOVENOUS ABL 1ST V RT Patient: FREDO GIBSON Exam Date: 08/25/2021 : 1960 Gender:M Ordering : DR OSMANY MARIA M.D. Admission #: [id number] Family : Order #: [id number] CLICK HERE TO VIEW EXAM RADIOLOGY REPORT PROCEDURE: VEIN CENTER ENDOVENOUS ABLATION FIRST VEIN RIGHT COMPARISON: None. INDICATIONS: Pain co-occurrent and due to varicose veins of bilateral legs i83.813 OPERATIVE REPORT: The risks and benefits of the procedure had been previously discussed, and were rediscussed at length. Informed written consent was obtained by me and Gonzalo hyman. Time out procedure was performed. The right lower extremity was prepared and draped in the usual sterile fashion to allow knee flexion in the sterile field. Duplex ultrasound probe was draped in a sterile cover, sterile transmission gel was used. Venous mapping was performed with the areas of dilation and large tributaries marked. The total length was 53 cm from the entry 5 cm above the medial malleolus to 3 cm below the saphenofemoral junction. The diameter of the greater saphenous vein ranged from 9 mm. A 30 gauge needle and 1% buffered lidocaine was used to anesthetize the entry site. A 4 mm incision was made with a scalpel and the saphenous vein was entered percutaneously under direct ultrasound guidance with a micropuncture set, a single stick was successful in gaining access. A micro-guide wire was inserted and the needle removed. A micro-set including a dilator was inserted over the microwire and the needle and dilator were removed. A 0.018 guide wire was inserted through the micro-set and threaded through the saphenous vein to the saphenofemoral junction. The dilator was removed and an introducer sheath was inserted over the wire until the end of the sheath entered the saphenofemoral junction. The dilator and wire were removed and the 600 micron fiber was introduced and placed and positioned so that it extended beyond the sheath and was 3 cm peripheral to the saphenofemoral femoral junction. Final position of the fiber was determined by ultrasound guidance and duplex imaging. Tumescent anesthetic was delivered by ultrasound guidance. Three hundred seventy-five cc of fluid was delivered along the entire course of the saphenous vein. The solution consisted of 500 cc of normal saline with 20mL of 1% lidocaine and 10 mL of sodium bicarbonate. A final positioning check was made. The energy source was turned on by means of the foot pedal and the fiber and sheath were withdrawn. The total number of Joules delivered was 3099. The laser was active for 387 seconds under continuous pulse, average laser use of 8 J. Laser start time 2:02 p.m. August 25, 2021. Laser stop time 2:12 p.m. August 25, 2021. A duplex ultrasound revealed compressibility and flow at the saphenofemoral junction immediately after the procedure. Hemostasis at the access site was achieved. The skin incision of the saphenous vein was closed with a 4 x 4. A compression stocking was applied. Postop instructions were given. A follow up appointment was recommended and scheduled. The patient tolerated the procedure well and was discharged in good condition. CONCLUSION: 1. Technically successful endovenous laser ablation of the right great saphenous vein. Dictated by: Will Dial M.D. on 08/25/2021 at 15:10 Approved by: Will Dial M.D. on 08/25/2021 at 15:12 Normal [facility] COMP CONSULTATIONon 06-29 VC COMP CONSULTATION Patient: OLEGARIO GIBSON Exam Date: 06/29/2021 : 1960 Gender:M Ordering : DR. REENA MurryPRickiMRicki Admission #: [id number] Family : Order #: [id number] CLICK HERE TO VIEW EXAM RADIOLOGY REPORT PROCEDURE: VEIN CENTER CONSULTATION VEIN CENTER - OFFICE VISIT INITIAL COMPARISON: None. PROGRESS NOTES: 60-year-old male who presents with a long history of lower extremity pain and swelling. This culminated in an active venous stasis ulceration along the right posterior lateral mid to distal calf 1 year ago which has not healed despite being seen by the wound center. The patient has had multiple episodes of right leg cellulitis. The patient complains of bulging discolored veins with swelling and muscle cramps. The patient rates the pain as a 7 on a scale of 1-10. 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 Patient's symptoms are partially relieved by rest, leg elevation, prescription pain medication. Patient does try to exercise however the lid is limited by osteoarthritis. The patient has worn his compression stockings for approximately 1 year. The patient denies any signs and symptoms to suggest arterial ischemia. The patient describes a family history significant for lung cancer in his mother, type 2 diabetes in his mother. Patient's past medical history is significant for hypertension, arthritis, low back pain, right knee pain, cellulitis, obesity. The patient has a history of smoking 1 pack per day discontinuing 12 years ago. Occasional social alcohol use. No drug use. The patient is currently on multiple medications for hypertension which he is feels is well controlled. No history of deep venous thrombus or pulmonary embolus. See separate history and physical for medication list. The patient was seen by the [facility] vein center and referred back by Dr. Irizarry for further treatment. Nursing notes were reviewed. After history and physical exam I discussed at length the pathophysiology of venous hypertension and possible treatments, therapies and strategies available. We discussed at length the importance of elevating the lower extremities above the level of the heart, increased physical activity and compression stocking use. We discussed conservative therapy with bilateral thigh-high compression stockings. We discussed surgical interventions with ligation and stripping. We discussed at length intravenous laser ablation, micro foam chemical ablation. Risks and benefits were discussed. The patient's questions were answered. Ultrasound venous reflux study performed the same day was discussed at length with the patient. The report demonstrates moderate bilateral great saphenous and right small saphenous vein with associated dilatation. Moderate bilateral incompetent branch saphenous tributaries/varicose veins. Bilateral incompetent sodder veins, left greater than right. The importance of weight loss , compression stockings and daily physical activity was discussed with the patient at length PHYSICAL EXAM: The right leg demonstrates scattered varicose, reticular and spider veins. Extensive pitting subcutaneous edema below the knee. Marked skin thickening and pigmentation below the knee. 7 x 5 cm active ulceration mid to distal lateral posterior right calf. The left leg demonstrates scattered varicose, reticular and spider veins. No active ulceration. Extensive hemosiderin staining below the knee. Extensive pitting subcutaneous edema below the knee.. Both thighs, legs and feet were symmetrically warm to the touch. Good posterior tibial and dorsalis pedis pulses were present bilaterally. IMPRESSION: 1. Moderate bilateral great saphenous vein and right small saphenous vein venous insufficiency with associated dilatation 2. Moderate bilateral lower extremity incompetent branch saphenous tributaries/varicose veins 3. Extensive bilateral below knee subcutaneous edema 4. No definite flow significant arterial disease 5. CEAP: C6, Ep, As, Pr PLAN: 1. Endovenous laser ablation right great saphenous vein followed by left great saphenous vein followed by right small saphenous vein. 2. Bilateral micro foam chemical ablation of incompetent branch saphenous tributaries/varicose veins 3. Re-evaluation of bilateral incompetent sodder veins after initial treatment 4. Elevated legs , weight loss and increased physical activity for symptomatic relief Nurse notes, history and physical were reviewed and confirmed, see attached forms. The nurse was present throughout the physical exam and consultation Dictated by: Osmany Maria MD on 06/29/2021 at 15:43 Approved by: Osmany Maria MD on 06/29/2021 at 15:51 Normal [facility] VC VENOUS REFLUX JULIA LMTon 0 06-29-2021 VC VENOUS REFLUX JULIA LMT Patient: FREDO GIBSON Exam Date: 06/29/2021 : 1960 Gender:M Ordering : DR. REENA OROZCO D.P.MRicki Admission #: [id number] Family : DR OSMANY MARIA M.D. Order #: [id number] CLICK HERE TO VIEW EXAM RADIOLOGY REPORT PROCEDURE: VEIN CENTER ULTRASOUND VENOUS REFLUX BILATERAL LIMTED COMPARISON: None. INDICATIONS: Pain co-occurrent and due to varicose veins of bilateral legs TECHNIQUE: Duplex imaging of the lower extremity to assess the deep and superficial venous system for the presence of deep or superficial venous incompetence and to document the location and severity of disease. The study includes evaluation of the great saphenous vein (GSV), anterior accessory saphenous vein (AASV) and small saphenous vein (SSV). Patient scanned in reverse Trendelenburg and standing. FINDINGS: RIGHT LOWER EXTREMITY: Saphenofemoral Junction Reflux: Yes 8.0mm 1.7 sec GSV: Diam (mm) Reflux/ Time (sec) Proximal Thigh 8.8 Yes 0.9 Mid Thigh 7.9 Yes 0.7 Distal Thigh 6.1 Yes 3.1 Prox Calf 5.0 Yes 0.9 Mid Calf 5.2 Yes 0.8 Saphenopopliteal Junction Reflux: 5.6mm Yes 0.9 SSV: Proximal Calf 5.8 Yes 2.3 Mid Calf 3.3 No AASV: Not present Thrombi: No chronic or acute thrombus at this time. Compressibility: Normal. Flow: Normal. Preforator: Prox medial calf 4.1 mm with 4.6s reflux. Posterior calf mid, 3.9 mm with 0.5s reflux. Tech Note: Incompetent SFJ/GSV, SPJ/SSV, and multiple varicose veins. Mid/medial calf varicosity measures 4.7 mm with 0.9s reflux. Proximal calf medial varicosity measures 4.5 mm with 2.1 seconds of reflux. Medial knee varicose vein measures 4.7 mm with 1.0s reflux. LEFT LOWER EXTREMITY: Saphenofemoral Junction Reflux: Yes 11.1 mm 2.4 sec GSV: Diam (mm) Reflux/Time (sec) Proximal Thigh 8.7 Yes 1.6 Mid Thigh 8.3 Yes 2.2 Distal Thigh 5.7 Yes 2.4 Prox Calf 5.8 Yes 2.7 Mid Calf 4.0 Yes 1.6 Saphenopopliteal Junction Relux: 4.9 mm No SSV: Proximal Calf 3.6 Yes 0.5 Mid Calf 3.8 Yes 0.4 AASV: Not present Thrombi: No chronic or acute thrombus at this time. Compressibility: Normal. Flow: Deep venous reflux. Ground Products Director: Distal/med calf perf measures 8.9 mm with 0.3s reflux. Prox/med calf 6.3 mm with 2.5s reflux. Tech Note: Incompetent SFJ/GSV and multiple varicose veins. Mid/medial calf varicosity measures 5.1 mm with 3.5s reflux. Medial/distal calf varicose vein off of sodder measures 4.6 mm with 1.2s reflux. Mid/medial thigh varicosity measures 3.7 mm with 0.6s reflux. Posterior/mid calf varicosity measures 4.0 mm with 2s reflux. CONCLUSION: 1. Moderate bilateral great saphenous vein and right small saphenous vein venous insufficiency with associated dilatation 2. Moderate bilateral incompetent branch saphenous tributary/varicose veins 3. Bilateral incompetent sodder veins, left greater than right Dictated by: Osmany Maria MD on 06/29/2021 at 14:52 Approved by: Osmany Maria MD on 06/29/2021 at 14:54 Normal [facility] Vital Signs Date Time Vital Sign Value Performing Clinician Charlie bonded 08-02-2022 14:30-0400 Body height 172.72 cm Eddie Hardeman II Other [facility] Other 08-02-2022 14:30-0400 Body mass index (BMI) [Ratio] 43.33 kg/m2 Eddie Tre II Other [facility] Other 08-02-2022 14:30-0400 Body weight 129.28 kg Eddie GomezPintley Other [facility] Other Encounters Encounter Date Encounter Type Care Provider Facility Start: 06-06-2024 End: 06-06-2024 ambulatory SERAFIN CHACON Not Available Start: 06-06-2024 End: 06-06-2024 Telemedicine consultation with patient Serafin Chacon DO Work Phone: [facility] 230 Comment on above: Leg ulcer, right, li mited to breakdown of skin (CMS/HCC) (Primary Dx); Episodic tension-type headache, not intractable; Psoriasis; Primary osteoarthritis of left hip Start: 06-06-2024 End: 06-06-2024 Bamboo flowsheet Serafin Chacon DO Work Phone: [facility] 230 Start: 06-06-2024 End: 06-06-2024 Bamboo flowsheet Serafin Chacon DO Work Phone: [facility] 230 Start: 06-04-2024 End: 06-04-2024 Telephone encounter Serafin Chacon DO Work Phone: [facility] 230 Comment on above: Med Refill Start: 06-03-2024 End: 06-03-2024 Refill Serafin Chacon DO Work Phone: [facility] 230 Comment on above: Primary osteoarthrit is of left hip; Hypertension, unspecified type (CMS/HCC); Primary hypertension (CMS/HCC) Start: 05-19-2024 End: 05-19-2024 Telephone encounter Serafin Chacon DO Work Phone: [facility] 230 Comment on above: Medication Question Start: 05-04-2024 End: 05-05-2024 Telephone encounter Serafin Neumann Kole DO [facility] Comment on above: diablity Start: 04-17-2024 End: 04-17-2024 Telephone encounter Serafin Chacon DO Work Phone: [facility] 230 Comment on above: Medication Question Start: 03-18-2024 End: 03-19-2024 Refill Serafin Neumann Kole DO Work Phone: [facility] 230 Comment on above: Primary osteoarthrit is of left hip; Restless legs syndrome; Osteoarthritis, unspecified osteoarthritis type, unspecified site Start: 03-06-2024 End: 03-06-2024 Telephone encounter Serafin Chacon DO [facility] Start: 12-24-2023 End: 12-24-2023 Telephone encounter Serafin Chacon DO [facility] Start: 10-03-2023 End: 10-03-2023 ambulatory SERAFIN CHACON Not Available Start: 10-09-2022 End: 10-09-2022 ambulatory Hieu Leach Other [facility] Other Start: 10-09-2022 Telephone encounter Hieu Cosme Risk Management Intern Start: 09-08-2022 End: 09-08-2022 ambulatory Hoda Soriano Other [facility] Other Start: 09-08-2022 Telephone encounter Hoda Soriano [facility] Start: 08-02-2022 End: 08-02-2022 ambulatory Eddie Toledo II Other [facility] Other Start: 08-02-2022 Office outpatient ne w 45 minutes Eddie Toledo II [facility] Start: 03-20-2022 ambulatory REENA OROZCO Faci lity:[facility]1 Start: 02-20-2022 End: 02-21-2022 ambulatory REENA OROZCO Facility:[facility] Start: 01-09-2022 End: 01-10-2022 ambulatory REENA OROZCO Facility:[facility] Start: 01-03-2022 End: 01-04-[address] OSMANY MARIA Facility:[facility] Start: 12-26-2021 End: 12-27-[address] OSMANY MARIA Facility:[facility] Start: 11-03-2021 End: 11-04-2021 ambulatory REENA OROZCO Facility:[facility] Start: 10-17-2021 End: 10-18-[address] OSMANY MARIA Facility:[facility] Start: 09-16-2021 ambulatory REENA OROZCO Faci lity:[facility]1 Start: 09-02-2021 End: 09-03-[address] OSMANY MARIA Facility:[facility] Start: 08-25-2021 End: 08-26-[address] OSMANY MARIA Facility:[facility] Start: 07-11-2021 End: 07-12-2021 ambulatory REENA OROZCO Facility:[facility] Start: 06-29-2021 End: 06-30-2021 ambulatory REENA OROZCO Facility:[facility] Start: 05-25-2021 End: 05-26-2021 ambulatory REENA OROZCO Facility:[facility] Start: 09-20-2020 End: 09-20-2020 Emergency department patient visit Serafin Chacon Facility:[facility] Procedures Date Procedure Procedure Detail Performing Clinician Start: 09-04-2017 Colonoscopy Serafin blackburn DO Work Phone: Screening for malign ant neoplasm of colon Eddie Toledo II Other Plan of Treatment Date Care Activity Detail Author Start: 09-05-2027 Screening for malign ant neoplasm of colon [facility] Start: 11-03-2024 Influenza vaccination Influenz a Vaccine (Season Ended) [facility] Start: 06-06-2024 End: 06-06-2024 Telemedicine consultation with patient 06/06/2024 3:00 PM EDT Telemedicine [facility] [address] [place] [address] Serafin Chacon, DO [address] [place] [address] [facility] Start: 11-04-2023 Influenza vaccination Influenza Vacc ine (#1) [facility] Start: 1960 Screening for malign ant neoplasm of colon [facility] Immunizations Immunization Date Immunization Notes Care Provider Fa cility 12-27-2021 influenza virus vacc ine, unspecified formulation Serafin Chacon DO Work Phone: [facility] Payers Date Payer Category Payer [facility] [id number] 2023 Unknown [id number] 2020 Self-pay 1960 Unknown [id number] 9.2.593 1960 Unknown [id number] 2.840.1.140413.3.57 9.259 1959 Unknown [id number] 2.16840.1.620623.3.57 9.2.59 1960 Unknown [id number] 2.16840.1.313688.3.57 9.2593 1959 Unknown [id number] 2.16840.1.801248.3.57 9.2.593 1959 Unknown [id number] 2.16.840.1.120821.3.57 9.2.593 1959 Unknown [id number] 2.16.840.1.917082.3.57 9.2.593 1959 Unknown [id number] 2.16.840.1.339937.3.57 9.2.593 1959 Unknown [id number] 2.16.840.1.412936.3.57 9.2.593 1959 Unknown [id number] 2.16.840.1.517185.3.57 9.2.593 1959 Unknown [id number] 2.16.840.1.074373.3.57 9.2.593 1959 Unknown [id number] 2.16.840.1.203217.3.57 9.2.593 1959 Unknown [id number] 2.16.840.1.690915.3.57 9.2.593 1959 Unknown [id number] 2.16.840.1.687367.3.57 9.2.1259 1959 Unknown [id number] 2.16.840.1.213160.3.57 9.2.1259 1960 Unknown [id number] Unknown [id number] 9.2.531 Social History Date Type Detail Facility Sex Assigned At [facility] Other Start: 11-14-2022 End: 06-06-2024 Sex Assigned At [facility] Start: 11-14-2022 Tobacco smoking status NYIS Ex-smoker [facility] History of tobacco use Current smoker [facility] History of tobacco use Cigarette Smoker [facility] Start: 11-14-2022 Tobacco use and exposure Smokeless tobacco non-user [facility] Start: 11-14-2022 Alcoholic beverage intake Current drinker of alcohol (finding) [facility] Start: 11-14-2022 End: 06-06-2024 [facility] of [facility] Start: 11-14-2022 Alcohol Comment drinks alcohol 2-4 times a month [facility] Start: 1960 Sex assigned at Not on file [facility] How often do you nee d to have someone help you when you read instructions, pamphlets, or other written material from your doctor or pharmacy [SILS] Sometimes [facility] Do you belong to any clubs or organizations such as protestant groups, unions, fraternal or athletic groups, or school groups? No [facility] Are you now , , , , never or living with a partner? [facility] How often to you hav e a drink containing alcohol? 2-4 times a month [facility] How many standard dr inks containing alcohol do you have on a typical day? 7 to 9 [facility] How often do you hav e 6 or more drinks on 1 occasion? Weekly [facility] How hard is it for y ou to pay for the very basics like food, housing, medical care, and heating Somewhat hard [facility] Do you feel stress - tense, restless, nervous, or anxious, or unable to sleep at night because your mind is troubled all the time - these days [OSQ] To some extent [facility] (I/We) worried wheth er (my/our) food would run out before (I/we) got money to buy more. Never true [facility] In the past 12 month s, has lack of transportation kept you from medical appointments or from getting medications? No [facility] Functional Status Date Assessment Result Facility 06-06-2024 Total score [AUDIT-C] 8 06/07/19 25 2:53 PM EDT Mychart, Generic [facility] 06-06-2024 How often to you hav e a drink containing alcohol? 2-4 times a month 06/06/2024 2:53 PM EDT Mychart, Generic 2-4 times a month [facility] 06-06-[address] inks containing alcohol do you have on a typical day? 7 to 9 06/06/2024 2:53 PM EDT Myctanat, Generic 7 to 9 [facility] 06-06-2024 How often do you hav e 6 or more drinks on 1 occasion? Weekly 06/06/2024 2:53 PM EDT Stefan Bull [facility] Clinical Notes 12-24-2023 to 06-06-2024 Seraifn Chacon, - 06/06/2024 3:00 PM EDTTelephone Encounter - Mandy Mariscal - 06/04/2024 10:06 AM EDTTelephone Encounter - Mandy Mariscal - 06/04/2024 10:06 AM EDT Note Date & Type Note Facility 06-06-2024 History of Present illness Narrative Images from the original note were not included. History of Present Illness The patient presents via virtual visit for evaluation of right leg ulcer, psoriasis, arthritis, and headaches. He reports a right leg ulcer that is not healing as expected due to his inability to properly care for it. He plans to have it cleaned and medicated upon his 's return from [place] next week. He has been prescribed an antibiotic to be crushed and applied topically to the wound. He is requesting a prescription for levofloxacin 750 mg for 10 days. He is seeking advice on the use of ammonium lactate for his psoriasis, which is present on both elbows. The condition initially presented as small lesions, similar in size to an eraser head, but has since expanded. He experiences severe pain from arthritis and hip issues, which has worsened with age, leading to a reluctance to move. He has received a shipment of tramadol, which he has not yet opened. He occasionally takes Tylenol in addition to tramadol, particularly during rainy weather. He reports no constipation from tramadol use. He is considering the use of dumbbells for arm exercises. He is also experiencing difficulty in rising from the toilet due to his hip condition and is seeking recommendations for a toilet seat that would alleviate hip pain. He finds comfort in sitting on soft surfaces and uses a walker and cane for mobility. He is considering the purchase of a toilet seat lift and is planning to undergo hip surgery. He also reports headaches, which he suspects may be migraines, and shortness of breath lasting a few minutes, which he attributes to weather changes. He reports no weight loss. SOCIAL HISTORY He used to drink every day but stopped a long time ago. Currently, he drinks maybe once or twice a week. MEDICATIONS Current: tramadol, Tylenol SUBJECTIVE: MEDICATIONS: ALLERGIES Current Outpatient Medications Medication Instructions ammonium lactate (Lac-Hydrin) 12 % lotion APPLY TO SKIN DAILY NEEDED aspirin 81 mg, Oral, Daily cyclobenzaprine (Flexeril) 10 MG tablet TAKE 1 TABLET UP TO THREE TIMES A DAY NEEDED FOR MUSCLE SPASM hydroCHLOROthiazide (HYDRODIURIL) 12.5 mg, Oral, Daily hydrocortisone 2.5 % cream Topical, 2 times daily lidocaine (Xylocaine) 5 % ointment APPLY DAILY NEEDED lisinopril 20 MG tablet TAKE 1 TABLET TWICE A DAY (GOING BACKUP TO 40 MG TOTAL PER DAY) meloxicam (MOBIC) 15 mg, Oral, Daily, Take 15 mg by mouth Daily metFORMIN (Glucophage) 500 MG tablet TAKE 1 TABLET BY MOUTH TWICE A DAY WITH A MEAL FOR 30 DAYS metoprolol succinate XL (Toprol-XL) 100 MG 24 hr tablet 1 po q daily oxyCODONE-acetaminophen (Percocet) 7.5-325 MG tablet 1 tablet, Oral, Every 6 hours PRN predniSONE (DELTASONE) 10 mg, Oral, Daily, TAKE 1 TABLET BY MOUTH WITH FOOD OR MILK THREE TIMES A DAY FOR 5 DAYS rOPINIRole (REQUIP) 1 mg, Oral, Nightly terazosin (Hytrin) 5 MG capsule TAKE 1 CAPSULE DAILY traMADol (ULTRAM) 50 mg, Oral, Every 6 hours PRN triamcinolone (Kenalog) 0.1 % ointment Every 12 hours No Known Allergies Depression: Not on file REVIEW OF SYMPTOMS: Review of Systems OBJECTIVE: There were no vitals taken for this visit. No results found for this or any previous visit (from the past 6 weeks). Results GENERAL EXAM: Physical Exam Physical Exam ASSESSMENT AND PLAN: Assessment/Plan Diagnoses and all orders for this visit: Leg ulcer, right, limited to breakdown of skin ([facility]) - levoFLOXacin (Levaquin) 750 MG tablet; Take 1 tablet (750 mg) by mouth Daily for 10 days Episodic tension-type headache, not intractable Psoriasis Primary osteoarthritis of left hip Assessment & Plan 1. Right leg ulcer. A prescription for levofloxacin 750 mg, a potent antibiotic, will be issued for a duration of 10 days. He is advised to monitor the ulcer closely and seek further medical attention if it worsens. 2. Psoriasis. He is advised to apply ammonium lactate 12% or 20% on the affected areas of his arms. 3. Arthritis. He is advised to continue his current regimen of tramadol 50 mg and may supplement it with Tylenol as needed. He is also encouraged to engage in light weightlifting exercises with his arms to help manage symptoms and burn calories. 4. Headaches. He reports experiencing headaches, possibly migraines, which seem to be influenced by weather changes. He is advised to monitor these symptoms and seek further evaluation if they persist or worsen. Follow-up The patient will follow up in 4 months. Total time for visit was approximately 20 minutes. No follow-ups on file. documented in this encounter [facility] 06-04-2024 Telephone encounter Note I am trying to call and see if Dr. Chacon will get me a prescription of Tramadol sent over to [facility] I called [email or web address]. They do not have any refills for me. So instead of running out, I would appreciate it if he could get $0.01 over there to [facility] here in [facility]. date [phone], phone number [phone]. Thank you, zahira. [facility] 06-04-2024 Miscellaneous Notes I am trying to call and see if Dr. Chacon will get me a prescription of Tramadol sent over to [facility] I called [facility]. They do not have any refills for me. So instead of running out, I would appreciate it if he could get $0.01 over there to [facility] here in [facility] Fredo Stewart. date [phone], phone number [phone]. Thank you, zahira. documented in this encounter [facility] 05-19-2024 Telephone encounter Note Pt wants to know if he can take an internal antibiotic along with the external for the ulcers on his leg. He wants to know if it's ok to take both at the same time. Wound center prescribed the external and Dr. Chacon prescribed the internal. [facility] 05-19-2024 Miscellaneous Notes Pt wants to know if he can take an internal antibiotic along with the external for the ulcers on his leg. He wants to know if it's ok to take both at the same time. Wound center prescribed the external and Dr. Chacon prescribed the internal. documented in this encounter [facility] 05-05-2024 Telephone encounter Note Pt is calling to ask Dr. Chacon if he can go on complete disability. His arthritis is severe, bilateral carpal tunnel, restless leg syndrome, obesity, inability to ambulate any significant distance. [facility] 05-05-2024 Miscellaneous Notes Pt is calling to ask Dr. Chacon if he can go on complete disability. His arthritis is severe, bilateral carpal tunnel, restless leg syndrome, obesity, inability to ambulate any significant distance. Patient stated that he is not able to work due to the hip pain and patient stated that he has ulcers on legs and vine issues in the legs. He stated that he wanted to put the call in tonight due to it takes the provider a while to get back with him. I advised the patient that I am not going to call the telecommunications cable jointer provider due to this is not that important and that the office will have to handle this on Sunday Morning and the telecommunications cable jointer providers do not handle these things. I explained that this is Urgent line for help. I did explained that I know he needs help but the office is the only one that is able to help him with this and I asked if he is in a very very pain to where we have to call the telecommunications cable jointer to see if they could do anything and he explained that he can wait until the office opens up in the morning. I did advise patient to call around [phone] office is open and they are able to get to the phones and gives them some time to roll over the phones. I told patient I will send this to the provider and the provider nurse as well. documented in this encounter [facility] 05-04-2024 Telephone encounter Note Patient stated that he is not able to work due to the hip pain and patient stated that he has ulcers on legs and vine issues in the legs. He stated that he wanted to put the call in tonight due to it takes the provider a while to get back with him. I advised the patient that I am not going to call the telecommunications cable jointer provider due to this is not that important and that the office will have to handle this on Sunday and the telecommunications cable jointer providers do not handle these things. I explained that this is Urgent line for help. I did explained that I know he needs help but the office is the only one that is able to help him with this and I asked if he is in a very very pain to where we have to call the telecommunications cable jointer to see if they could do anything and he explained that he can wait until the office opens up in the morning. I did advise patient to call around [phone] office is open and they are able to get to the phones and gives them some time to roll over the phones. I told patient I will send this to the provider and the provider nurse as well. [facility] 04-17-2024 Telephone encounter Note This is Fredo. Pat, I have been on hold for like 12 min. I do not have the number for the billing department. And was hoping somebody could transfer me over. Could somebody please at least give me a call and give me the number, the number [phone]. And I am also calling to find out if Dr. Chacon sent my antibiotic over to [facility] Thanks. Bye. LVM letting pt know the antibiotic had been sent in yesterday. [facility] 04-17-2024 Miscellaneous Notes This is Fredo. Pat, I have been on hold for like 12 min. I do not have the number for the billing department. And was hoping somebody could transfer me over. Could somebody please at least give me a call and give me the number, the number [phone]. And I am also calling to find out if Dr. Chacon sent my antibiotic over to [facility] Thanks. Bye. BLOOD letting pt know the antibiotic had been sent in yesterday. documented in this encounter [facility] 03-06-2024 Telephone encounter Note Pt called requesting Dr. Chacon call him. Not Isabelle. He would like to speak with Dr. Chacon. Fredo is concerned that some of his messages are getting twisted around . He says it won't take long but is VERY important. [facility] 03-06-2024 Miscellaneous Notes Pt called requesting Dr. Chacon call him. Not Isabelle. He would like to speak with Dr. Chacon. Fredo is concerned that some of his messages are getting twisted around . He says it won't take long but is VERY important. documented in this encounter [facility] 12-24-2023 Telephone encounter Note Pt is requesting an antibiotic for the ulcer on his right leg. It started getting better just as he was running out of antibiotics. He thinks he needs them for longer. [facility] [place]. He needs these right away so he can live in comfort. His can pick them up today. [facility] 12-24-2023 Miscellaneous Notes Pt is requesting an antibiotic for the ulcer on his right leg. It started getting better just as he was running out of antibiotics. He thinks he needs them for longer. [facility] [place]. He needs these right away so he can live in comfort. His can pick them up today. documented in this encounter [facility] Evaluation note Merged With [facility] Other Evaluation note No Information Merged With [facility] Other Evaluation note Diagnosis Primary osteoarthritis of left hip Restless legs syndrome Restless legs syndrome (RLS) Osteoarthritis, unspecified osteoarthritis type, unspecified site documented in this encounter [facility] HealthcareEvaluation note* Diagnosis Primary osteoarthritis of left hip Hypertension, unspecified type (CMS/HCC) Primary hypertension (CMS/HCC) Unspecified essential hypertension documented in this encounter [facility] HealthcareEvaluation note* Diagnosis Leg ulcer, right, limited to breakdown of skin (CMS/HCC)- Primary Episodic tension-type headache, not intractable Psoriasis Other psoriasis Primary osteoarthritis of left hip [facility] - ReportedNort Sounder Other History general Narrative - Reported* Type Description Date Medical History HTN (hypertension) Medical History Irregular heart rate Surgical History Foot Surgery Surgical History tonsillectomy Hospitalization History htn [facility] [employer] Other Summary Purpose Family History No Family History Records FoundNo Family History Records FoundNo Family History Records Found Advance Directives No Advanced Directives Records FoundNo Advanced Directives Records FoundNo Advanced Directives Records Found Additional Source Comments (unrecognized sect ion and content) No Status Records FoundNo Status Records FoundNo Status Records Found INFORMATION SOURCE (unrecogn ized section and content) DATE CREATED AUTHOR 03/15/2022 [facility] DATE CREATED AUTHOR AUTHOR'S ORGANIZ ATION 08/11/[address] [facility] DATE CREATED AUTHOR AUTHOR'S ORGANIZ ATION 06/09/2024 [facility] EPIC REASON FOR VISIT (unrecogniz ed section and content) Reason Onset Date Comments Medication Question 04/17/2024 Reason Onset Date Comments diablity 05/04/2024 Reason Onset Date Comments Medication Question 05/19/2024 Reason Comments Med Refill Reason Onset Date Comments Med Refill 06/04/2024 Care Teams (unrecognized sec tion and content) Fill Plant Operator Relationship Specialty Start Date End Date Serafin Chacon, DO [address] [place] [address] PCP - [facility] 07/03/20 Serafin Chacon, DO [address] [place] [address] PCP - General Family Medicine 07/11/22 Fill Plant Operator Relationship Specialty Start Date End Date eSrafin Chacon, DO [address] [place] [address] PCP - [facility] [employer] 07/03/20 Serafin Chacon, DO [address] [place] [address] PCP - General Family Medicine 07/11/22 Fill Plant Operator Relationship Specialty Start Date End Date Serafin Chacon, DO [address] [place] [address] PCP - [facility] [employer] 07/03/20 Serafin Chacon, DO [address] [place] [address] PCP - General Family Medicine 07/11/22 Fill Plant Operator Relationship Specialty Start Date End Date Serafin Chacon, [address] [place] [address] PCP - [facility] [employer] 07/03/20 Serafin Chacon, DO [address] [place] [address] PCP - General Family Medicine 07/11/22 Fill Plant Operator Relationship Specialty Start Date End Date Serafin Chacon, DO [address] [place] [address] PCP - [facility] [employer] 07/03/20 Serafin Chacon, DO [address] [place] [address] PCP - General Family Medicine 07/11/22 Fill Plant Operator Relationship Specialty Start Date End Date Serafin Chacon, DO [address] [place] [address] PCP - [facility] [employer] 07/03/20 Serafin Chacon, DO [address] [place] [address] PCP - General Family Medicine 07/11/22 Fill Plant Operator Relationship Specialty Start Date End Date Serafin Chacon, DO [address] [place] [address] PCP - [facility] [employer] 07/03/20 Serafin Chacon, DO [address] [place] [address] PCP - General Family Medicine 07/11/22 FOR RECORDS PERTAINING TO PATIENTS WHO ARE OR HAVE BEEN ENROLLED IN A CHEMICAL DEPENDENCY/SUBSTANCEABUSE PROGRAM, SOME INFORMATION MAY BE OMITTED. This clinical summary was aggregated from multiple sources. Caution should be exercised in using it in the provision of clinical care. This summary normalizes information from multiple sources, and as a consequence, information in this document may materially change the coding, format and clinical context of patient data. In addition, data may be omitted in some cases. CLINICAL DECISIONS SHOULD BE BASED ON THE PRIMARY CLINICAL RECORDS. [facility]. provides no warranty or guarantee of the accuracy or completeness of information in this document.
--- NOTE | 2024-08-22 12:47 | ECG_ITS ---
[facility] Test Date: 2024-08-22 Pat Name: FREDO GIBSON Department: Room: - Gender: Male Wheel Press Operator: : 1960 Requested By: [id number] Order Number: [id number] Reading MD: ROBERT ARECHIGA M.D. Measurements Intervals [place] Rate: 147 P: -[id number] LA: -14046 QRS: 118 QRSD: 126 T: 90 QT: 282 QTc: 366 Interpretive Statements 45450 Atrial fibrillation with rapid ventricular response with aberrant conduction, or ventricular premature complexes [address] depression, consistent with subendocardial injury 4437 Septal injury or acute infarct 5120 Possible right ventricular hypertrophy 9150 abnormal ECG No previous ECG available for comparison Electronically Signed On 08-22-2024 19:32:07 EDT by ROBERT ARECHIGA M.D.
[2024-08-22 12:53] LABS: Basophils Percent Auto 0.4 % (0.2-2.0); Eosinophils Absolute Auto 0.4 10^3/uL (0.0-0.7); Hematocrit 39.4 % (42.0-54.0); Hemoglobin 13.1 g/dL (14.0-18.0); Immature Granulocytes Abs Auto 0.34 10^3/uL (0.00-0.03); Immature Granulocytes Pct Auto 4.1 % (0.0-0.5); Lymphocytes Absolute Auto 2.3 10^3/uL (1.2-3.8); Lymphocytes Percent Auto 28.1 % (20.5-60.0); Mean Corpuscular HGB Conc 33.2 g/dL (29.9-35.2); Mean Corpuscular Hemoglobin 30.6 pg (25.9-34.0); Mean Corpuscular Volume 92.1 fL (80.0-94.0); Mean Platelet Volume 9.6 fL (9.5-13.5); Monocytes Absolute Auto 0.4 10^3/uL (0.3-0.8); Monocytes Percent Auto 4.8 % (1.7-12.0); Neutrophils Absolute Auto 4.8 10^3/uL (1.4-6.5); Neutrophils Percent Auto 57.6 % (43.0-75.0); Platelet Count 169 10^3/uL (150-450); Red Blood Count 4.28 10^6/uL (4.70-6.10); Red Cell Distribution Width 15.1 % (11.0-15.0); White Blood Count 8.3 10^3/uL (4.0-11.0)
[2024-08-22 13:03] LABS: Alanine Aminotransferase 40 U/L (16-63); Albumin Globulin Ratio 0.9; Alkaline Phosphatase 115 U/L (46-116); Anion Gap 17.3; Aspartate Amino Transferase 29 U/L (15-37); BUN Creatinine Ratio 15.5; Bilirubin Total 0.5 mg/dL (0.2-1.0); Calcium 8.7 mg/dL (8.5-10.1); Chloride 102 mmol/L (98-107); Estimated GFR (African America 55 (>=60 mL/min/1.73m^2); Estimated GFR (Non-African Ame 45 (>=60 mL/min/1.73m^2); Globulin 3.3 g/dL; Glucose 189 mg/dL (74-106); Potassium 3.3 mmol/L (3.5-5.1); Sodium 140 mmol/L (136-145); Total Protein 6.3 g/dL (6.4-8.2)
[2024-08-22 13:06] LABS: Troponin I High Sensitivity 25.7 pg/mL (4.0-76.1)
[2024-08-22 13:16] LABS: Magnesium 1.8 mg/dL (1.8-2.4)
--- NOTE | 2024-08-22 13:16 | PC.NURSE ---
[facility] notified of paitent at 1301, reports that he could be a potential donor. If family makes decision of home [facility] would like to be called so they can do a bedside approach. Case # [id number]
--- NOTE | 2024-08-22 13:16 | ED.GENADUL1 ---
HPI HPI - General Adult General Stated complaint: FULL ARREST/ UNRESPONSIVE Time Seen by Provider: 08/22/24 12:47 History of Present Illness HPI narrative: The patient is brought to us by the EMS as an arrest outside the hospital, the patient have a history of alcohol abuse and morbid obesity had embolization problem and apparently and has not been his primary care doctor for a long time, the patient also had a problem ambulating and he had not been showering since almost 3 months because of that problem. The patient was brought to us by the EMS after his found him arrested she saw him 5 minutes after she last seen him awake, she started CPR and called the ambulance by the time the EMS arrived the PD was there and they started CPR as well, 3 rounds of CPR were done outside the hospital including 1 shock and 3 epinephrine Related Data Home Medications ?Medication ?Instructions ?Recorded ?Confirmed aspirin 81 mg capsule 81 mg PO DAILY 04/10/24 04/10/24 diclofenac-misoprostol PO 04/10/24 hydrochlorothiazide PO 04/10/24 lisinopril 40 mg tablet 40 mg PO DAILY 04/10/24 04/10/24 metoprolol succinate 100 mg 100 mg PO DAILY 04/10/24 04/10/24 tablet,extended release 24 hr (Toprol XL) terazosin 5 mg capsule 5 mg PO DAILY 04/10/24 04/10/24 tramadol 50 mg tablet 50 mg PO Q6H PRN pain 04/10/24 04/10/24 Allergies Allergy/AdvReac Type Severity Reaction Status Date / Time No Known Drug Allergies Allergy Unverified 04/10/24 07:52 [facility] Medical History (Updated 08/22/24 @ 13:21 by Doris Morton MD) Knee pain ?M25.569 - Pain in unspecified knee (ICD-10) Low back pain ?M54.50 - Low back pain, unspecified (ICD-10) Arthritis ?M19.90 - Unspecified osteoarthritis, unspecified site (ICD-10) Cellulitis ?L03.90 - Cellulitis, unspecified (ICD-10) Obesity ?E66.9 - Obesity, unspecified (ICD-10) Hypertension ?I10 - Essential (primary) hypertension (ICD-10) Pain due to varicose veins of both lower extremities ?I83.813 - Varicose veins of bilateral lower extremities with pain (ICD-10) Varicose veins of bilateral lower extremities with pain ?I83.813 - Varicose veins of bilateral lower extremities with pain (ICD-10) Surgical History (Updated 04/10/24 @ 07:50 by Kim Fleming RN) S/P foot surgery, right ?Z98.890 - Other specified postprocedural states (ICD-10) Family History (Updated 04/10/24 @ 07:51 by Kim Fleming RN) Mother Family history of cancer Family history of diabetes mellitus Social History (Updated 04/10/24 @ 07:52 by Kim Fleming RN) Within the past year, how often did you have a drink containing alcohol: monthly or less Smoking status: Former smoker Nicotine containing products detail: Quite smoking 15 years ago. Smoked 1 PPD. Non-prescribed substance use: denies use Exam Narrative Exam Narrative: Upon arrival the patient had a laryngeal mask and that he was being bagged in addition to the fact that CPR continued The first rhythm was fine V. tach and the patient had received a shock From 1218 until 1245 almost the patient had epinephrine almost every 3 to 5 minutes in addition to CPR and pulse check almost every 2 minutes The patient received at least 2 shocks and in between the CPR continued The patient was intubated as well with 8 size ET tube The patient Arrived at 1218 and he received at 1220 epinephrine there was no pulse and the patient had a V-fib and had a shock delivered At 1221 the patient had D50 At 1223 the patient had a bicarb and epinephrine 1237 around the patient being intubated the patient had a pulse by around 1238 the patient had no pulse again and will continue CPR with the same rate of having the patient taking epinephrine every 3 to 5 minutes and continued CPR with switch of the CPR compression every 2 minutes The patient during this time provided with D50 as well as 1 dose of amiodarone 300 mg and 1 dose of amp of bicarb and 2 g of magnesium and presenting the family to the bedside explained to them that the patient prognosis that he had no pulse for a while is futile At 1243 the family was at the bedside and the plan was after speaking with them that if the patient have no pulse after we stopped the CPR which at 1244 the patient had a pulse and a blood pressure of 89/57 That this could be secondary to the epinephrine in case the patient pulse stops we will not resume CPR after that and the at the bedside is agreeable The patient time of at 1302 after the not to continue any further CPR The patient case discussed with his primary care doctor office Dr. Serafin Sharif And Dr Haynes who is covering for Dr. Caruso mentioned his colleague will have no issue signing the certificate The family chosen the [facility] I called the predatory game hunter and the patient body is released to the family Medical Decision Making Lab Data Labs: Lab Results 08/22/24 Range/Units 12:20 WBC 8.3 (4.0-11.0) 10^3/uL RBC 4.28 L (4.70-6.10) 10^6/uL Hgb 13.1 L (14.0-18.0) g/dL Hct 39.4 L (42.0-54.0) % MCV 92.1 (80.0-94.0) fL MCH 30.6 (25.9-34.0) pg MCHC 33.2 (29.9-35.2) g/dL RDW 15.1 H (11.0-15.0) % Plt Count 169 (150-450) 10^3/uL MPV 9.6 (9.5-13.5) fL Neut % (Auto) 57.6 (43.0-75.0) % Lymph % (Auto) 28.1 (20.5-60.0) % Emery % (Auto) 4.8 (1.7-12.0) % Eos % (Auto) 5.0 (0.9-7.0) % Baso % (Auto) 0.4 (0.2-2.0) % Neut # (Auto) 4.8 (1.4-6.5) 10^3/uL Lymph # (Auto) 2.3 (1.2-3.8) 10^3/uL Emery # (Auto) 0.4 (0.3-0.8) 10^3/uL Eos # (Auto) 0.4 (0.0-0.7) 10^3/uL Baso # (Auto) 0.0 (0.0-0.1) 10^3/uL Abs Immat Gran (auto) 0.34 H (0.00-0.03) 10^3/uL Imm/Tot Granulo (auto) 4.1 H (0.0-0.5) % Sodium 140 (136-145) mmol/L Potassium 3.3 L (3.5-5.1) mmol/L Chloride 102 (98-107) mmol/L Carbon Dioxide 24.0 (21.0-32.0) mmol/L Anion Gap 17.3 BUN 24.0 H (7.0-18.0) mg/dL Creatinine 1.55 H (0.70-1.30) mg/dL Est GFR ( Amer) 55 L (>=60 mL/min/1.73m^2) Est GFR (Non-Af Amer) 45 L (>=60 mL/min/1.73m^2) BUN/Creatinine Ratio 15.5 Glucose 189 H (74-106) mg/dL Calcium 8.7 (8.5-10.1) mg/dL Magnesium 1.8 (1.8-2.4) mg/dL Total Bilirubin 0.5 (0.2-1.0) mg/dL AST 29 (15-37) U/L ALT 40 (16-63) U/L Alkaline Phosphatase 115 (46-116) U/L Troponin I High Sens 25.7 (4.0-76.1) pg/mL Total Protein 6.3 L (6.4-8.2) g/dL Albumin 3.0 L (3.4-5.0) g/dL Globulin 3.3 g/dL Albumin/Globulin Ratio 0.9 Discharge Plan Discharge Patient Disposition: Date/Time: 08/22/24 13:02 Probable Cause of Probable Cause of : Cardiopulmonary arrest
--- NOTE | 2024-08-22 13:31 | CM.NOTE ---
Called to ER for [facility] [employer], support provided and questions answered. Stayed at bedside with family while care being performed. Support also provided after code and questions answered. Family wishes are for [facility], updated RN about plan. Ania Gordillo now will provide support until home arrives. RN updated that family would like to spend more time with pt prior to [facility] picking pt up.
[2024-08-22 14:37] VITALS: BMI 48.5
--- NOTE | 2024-08-22 15:37 | ECG_ITS ---
[facility] Test Date: 2024-08-22 Pat Name: FREDO GIBSON Department: Room: - Gender: Male Alberene [employer]ter: : 1960 Requested By: [id number] Order Number: [id number] Reading MD: ROBERT ARECHIGA M.D. Measurements Intervals [place] Rate: 96 P: 6 DC: 206 QRS: 107 QRSD: 110 T: 195 QT: 354 QTc: 407 Interpretive Statements 1100 Sinus rhythm 1474 with frequent supraventricular premature complexes 3433 Septal myocardial infarction, probably old [address] depression, consistent with subendocardial injury 7100 Abnormal right axis deviation 9150 abnormal ECG Compared to ECG 08/22/2024 12:27:24 Right-axis deviation now present Atrial fibrillation no longer present Ventricular premature complex(es) no longer present Aberrant conduction of supraventricular beat(s) no longer present Myocardial infarct finding still present ST (T wave) deviation still present Electronically Signed On 08-22-2024 19:33:31 EDT by ROBERT ARECHIGA M.D.
[2024-08-25 10:56] LABS: Glucometer 107 mg/dL (74-106)
== END 2024-08-22 14:39 | disposition expired ==
PROVIDERS: Emergency Provider Emergency Medicine
DX: I46.9 Cardiac arrest, cause unspecified (principal); E66.01 Morbid (severe) obesity due to excess calories; Z68.42 Body mass index [BMI] 45.0-49.9, adult; F10.11 Alcohol abuse, in remission; Z87.891 Personal history of nicotine dependence
CPT/HCPCS: 31500; 36415; 80053; 82948; 83735; 84484; 85025; 92950; 93005; 99291; J0171; J3475